=== PATIENT | female | born 1960 | race Caucasian/White ===

== ENCOUNTER 2016-08-25 09:57 | Day surgery (SDC) | payer MEDICARE, MEDICAID ==
[2016-08-25] VITALS (10 sets, daily range): BP systolic 112–179; BP diastolic 76–98; PULSE 57–70; RESP 14–18; O2SAT 85–98
[~2016-08-25] VITALS: Ht 167.6 cm; Wt 89.4 kg
[~2016-08-25 09:57] MED LIST: BACL20TA PO; BUPR1FIL3 SL; CYCL7.5T27 PO; CeFAZolin Inj 2 GM in IV Premix 1 EACH IV ONE; GABA-502 PO; HYG25 PO; IPRA4AER IH; LISI-567 PO; METF500T4 PO; OXYC1TAB24 PO
[2016-08-25] MEDS ORDERED: Lidocaine PF 1% 30 mL Inj ONE (09:58)
[2016-08-25] MEDS ORDERED: Succinylcholine Chloride 20 mg/mL 5 mL Inj ONE (09:58)
[2016-08-25] MEDS ORDERED: Ondansetron 2 mg/mL 2 mL Inj ONE (09:58)
[2016-08-25] MEDS ORDERED: fentaNYL-PF 50 mCg/mL 2 mL Inj ONE (09:58)
[2016-08-25] MEDS ORDERED: Rocuronium 10 mg/mL 5 mL Inj ONE (09:58)
[2016-08-25] MEDS ORDERED: Propofol 10,000 mCg/mL 20 mL Inj ONE (09:58)
[2016-08-25] MEDS ORDERED: Dexamethasone 4 mg/mL Inj ONE (09:58)
[2016-08-25] MEDS: Lactated Ringer's 1,000 ML IV SCH ×2 (10:07→12:04)
--- NOTE | 2016-08-25 11:44 | PCM.ORTHOP ---
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 Without the qualified health assistant being present, it would have extended the operative procedure and made the procedure technically more difficult to perform. INDICATIONS: The patient is Stephanie Acosta who is a 55-year-old female with right shoulder pain and dysfunction. The risks, benefits, and alternatives of surgery were discussed with the patient. The risks included but were not limited to infection, bleeding, damage to vessels and nerves, loss of motion, continued pain, complications due to anesthesia including myocardial infarction , stroke, , etc. The patient stated understanding of the nature of the surgical procedure and gave written and verbal consent to proceed. PROCEDURE: The patient was brought into the operating room and placed supine on the operating room table. A interscalene block was placed in the right shoulder for postoperative pain management, followed by the administration of general anesthesia. . The patient was then placed into the lateral decubitus position with the right side up. An axillary role was placed and the legs were padded as necessary to avoid pressure points. The patient was maintained in position with a beanbag evacuation device. A thorough examination of the right shoulder under anesthesia was performed. The patient had 160 degrees of forward elevation and 110 degrees of abduction. In 90 degrees of abduction there was 90 degrees of external rotation and 90 degrees of internal rotation. The shoulder was stable to load-shift testing. The right upper extremity was then prepped and draped in the usual fashion. The arm was suspended with a well-padded sleeve with eight/ten pounds of balanced suspension in the arthroscopic position. A standard posterior portal was made inferior and medial to the posterior corner of the acromion. The incision was made only through skin. The trocar was advanced through the soft tissue with a blunt-tipped obturator. This was inserted into the glenohumeral joint without difficulty. The 4 mm arthroscope was placed through the cannula and attached to the video monitor system. Inflow was achieved using the arthroscopic pump. The pressure was maintained at 35-40 mm of mercury throughout the entire procedure. Once the arthroscope confirmed visualization within the shoulder joint, it was advanced anteriorly into the rotator interval beneath the biceps tendon. A Wissinger soraya was then used to create the anterior portal from inside-out. A second anterior stab wound incision was made only through skin and an anterior cannula was placed. A routine arthroscopic survey was begun. The anterior labrum was debrided down to stable base. The biceps was tenotomized and RF wand was used to tighten the tissues. Survey: A2 B2 C2 full-thickness rotator cuff tear, partial biceps tendon tear, anterior labral degenerative tear The arm was then placed in the bursoscopy position. Moderate synovitis was noted and a partial synovectomy was performed with a RF wand and shaver. Complex surgical procedure: This was an extremely complex surgical procedure which took approximately 30-40 % longer to complete than a standard repair. Without the use of a qualified him assistant, this surgical procedure would have taken even considerably longer and been unable to be performed arthroscopically. Tyesha procedure: Within the subacromial space there was marked fraying on the undersurface of the coracoacromial ligament consistent with impingement. A decision was thus made to proceed with arthroscopic subacromial decompression. Using an RF wand and a motorized shaver the coracoacromial ligament was recessed from the anterior acromial edge. An orientation trough was made along the lateral margin of the acromion, from the anterior corner back to the posterior margin of the AC joint. A sequential subacromial smoothing was carried out, removing approximately [default value] mm of bone corresponding to the preoperative radiographs. Once completed, the AC joint capsule was opened. There was inferior spurring as well as synovitis and arthritic changes at the AC joint and a decision was made to proceed with distal clavicle excision. Using a motorized bur working initially from posteriorly and then anteriorly, the outer 10 mm of the distal clavicle were excised. The arthroscope was then positioned anteriorly within the AC resection site confirming an excellent level of resection. Single anchor repair Attention was then directed to the rotator cuff repair. Using the motorized shaver from both the anterolateral portal and the posterior portal, the free edge of rotator cuff was debrided. The anatomic neck of the tuberosity was then gently abraded, using the motorized shaver and exposing good bone for healing. Via an accessory anterolateral portal, a triple-loaded anchor was inserted, with excellent fixation purchase. The three stitches were then transported across the rotator cuff using a shuttling technique, spacing the sutures equidistantly. Once the sutures were all passed, they were sequentially tied, using SMC knots and alternating half-hitches, which gave excellent loop and knot security. This reduced the rotator cuff back to the anatomic neck. A microfracture was then performed laterally on the tuberosity creating a crimson duvet to aid in tendon healing. The biceps which was proceeded tenotomized intra-articularly was incorporated into the anterior limb of the rotator cuff repair. The biceps was tensioned prior to tenotomy with a needle and PDS suture intra-articularly and then tenodesed to the anchor. The arm was placed through range of motion and the rotator cuff and humeral head moved well as a unit. There was no further evidence for impingement. The subacromial space was irrigated with an additional 500 mL lactated Ringer solution. Excess fluid was drained. The arm was placed through a range of motion and the rotator cuff and humeral head moved well as a unit. There was no further evidence of impingement. The subacromial space was irrigated with an additional liter of lactated Ringers solution and excess fluid was drained. The arthroscopic portals were closed with #4-0 Nylon and Steri-Strips. A dry sterile dressing was applied, followed by a neutral rotation sling. The patient was awakened in the operating room and transported to the recovery room in satisfactory condition. The patient appeared to tolerate the procedure well. There were no complications noted. Grafts, Implants: Implants-See Implant Record Complications There were no periprocedural complications identified. Condition Stable Anesthetic Administered: GA Catheters: None Output, Estimated Blood Loss: 10 Blood Admin during surgery: No Surgical Cast or Splint: Shoulder Immobilizer Surgical Specimen Removed: No Specimen sent to Pathology: No copies to: Sky Sanders MD, Christopher L MD Aug 25, 2016 11:44
[2016-08-25] MEDS ORDERED: Ketorolac 15 mg/mL Inj IVPUSH ONE (11:45)
[2016-08-25] MEDS ORDERED: Lactated Ringer's 1,000 ML IV SCH (12:38)
[2016-08-25] MEDS ORDERED: Lactated Ringer's 500 ML IV PRN (12:38)
--- NOTE | 2016-08-25 12:38 | PCM.HPANE ---
Patient Data Surgeon Admitting Provider: Attending Provider:Sky Sanders MD Primary Care Physician:Sky Fabian DO Other Provider:Kaila Kapadia Anesthesia Reason for Visit Right Rotator Cuff Tear Ht/WT & BMI Height (Feet): 5 Height (Inches): 6 Weight (Kilograms): 89.4 Body Mass Index 31.00 Allergies Coded Allergies: codeine (Verified Allergy, Severe, RASH,ITCHING, 08/20/16) nitrofurantoin (Verified Allergy, Severe, HIVERS,SWELLING, 08/20/16) acetaminophen (Verified Adverse Reaction, Severe, LIVER TOXICITY,ITCHING, 08/20/16) metronidazole (Verified Adverse Reaction, Unknown, UNKNOWN, 08/20/16) Past Anesthesia History Anesthesia History: Denies:: Anesthesia Reactions, Malignant Hyperthermia Diabetes History Hx Diabetes?: Yes Type of Diabetes: Type II Glycemic Control: Oral Medication Current Bedside Blood Glucose: 151 MRSA MRSA: Yes (??RT HIP, RT WRIST) Medications Hypertension Medication: Yes (LISINOPRIL,CHLORTHALIDONE) Home Meds Incl Beta Carlito: No Reported Medications Metformin 500 Mg [id number] Mg PO BID Ref 0 MED HAS BEEN PRESCRIBED; PT HAS NOT STARTED TAKING YET 08/20/16 Lisinopril 20 Mg Irpsjv04 Mg PO DAILY 30 Days Ref 0 08/20/16 Gabapentin 300 Mg [id number] Mg PO TID Ref 0 08/20/16 Cyclobenzaprine 7.5 Mg Tablet7.5 Mg PO TID PRN Spasm Ref 0 08/20/16 Albuterol/Ipratropium (Combivent Respimat Inhal [place])120 Spr/4 Gm Inhaler1 Puff IH 6X/DAY #1 INH Ref 0 & PRN 08/20/16 Chlorthalidone 25 Mg Rxhosk05 Mg PO DAILY #30 TABLET 08/20/16 Discontinued Reported Medications Baclofen 20 Mg Hxpasr00 Mg PO BID Ref 0 08/20/16 Buprenorphine HCl/Naloxone HCl (Suboxone 8 mg-2 mg Sl Film)1 Each Film1 Each SL DAILY Ref 0 PT HAS HELD DRUG FOR 1 MONTH IN ANTICIPATION OF SURGERY 08/20/16 Discontinued Scripts oxyCODONE-Acetaminophen 5-325 mg 1 Each Tablet1-2 Tab PO Q4H PRN For Pain #15 TABLET Ref 0 Prov:Ko Beverly MD 04/10/16 History History of ENT Problems?: No Hx of Heart Problems?: Yes Cardiovascular History: Positive for:: Heart Murmur (REPORTED ECHO ([facility]) 10/2004, MPS 10/2005 REPORTED WNL) Hypertension (HYPERLIPIDEMIA) Valvular Heart Disease (NON-RHEUMATIC TR,MILD MR) Denies:: Congestive Heart Failure Irregular Heartbeat (HX PVC'S IN BIGEMENY) Hx of Respiratory Problem?: Yes Respiratory History: Positive for:: Asthma Denies:: Tuberculosis Use of C-PAP Machine (SNORES) Hx Neurologic Problems?: Yes Hx of GI Problems?: Yes Gastrointestinal History: Positive for:: Gall Bladder Disease (S/P JC) Gastroesphageal Reflux ("NUTCRACKER" ESOPHAGUS/SPASM) Hepatitis (CHRONIC HEP C) Other GI Pertinent History: S/P GASTRIC BYPASS, DX LAP X2,BOWEL RESECTION FOR SBO,HERNIA RPR Hx of Problems?: Yes Genitourinary History: Positive for:: Kidney Stones (HX OF MULT. STONES) Urinary Tract Infection (PYELONEPHRITIS) Female Hx: Denies:: Currently (HX HYSTERECTOMY) Skin History: Positive for:: History Skin Disorders? (HX RT HIP ABCESS REQ. I& D) Denies:: Pressure Ulcers Hx Musculoskeletal Problems?: Yes Musculoskeletal History: Positive for:: Musculoskeletal Trauma (S/P ORIF LT ANKLE W/ REVISION & HARDWARE REMOVAL,CTR) Osteoarthritis Denies:: Back Injury (C/OF CHRONIC NECK & BACK PAIN) Hx of Psycho/Social Problems?: Yes Psycho Social History: Positive for:: Anxiety Bipolar Disorder (BIPOLAR I) Hx Depression Suicide Attempt Other History/Comment hx Etoh abuse and polysubstance abuse Hx Surgeries?: Yes (RT WRIST SKIN GRAFT,CTR,BOWEL RESECTION,HERNIA RPR,ORIF LT ANKLE W/ REVISIO) Hx Any Other Health Problems?: Yes Other History: Positive for:: Hospitalization (NECOTIZING FACIITIS) Denies:: Cancer Endocrine Disease Thyroid Disease Hx Diabetes: YesBedside Blood Glucose: 151 Hx Alcohol Use: Yes (PT SAYS CURRENTLY IN REMIOSSION)Hx Substance Use: Yes ( HX ABUSE (HEROIN,METH,COCAINE) CURRENTLY IN REMISSION) Smoking Status: Current Every Day Smoker Have You Smoked inLast 12 mo: YesApprox How Many Cigarettes/day: 1/2 PPD X 20YRS Stop/Bang S-Snoring: Do You Snore Loudly: Yes T-Tired: feel tired, fatigued: Yes O-Obsered: Observed not breath: Yes P-Blood Pressure: treated: Yes B- Body Mass Index > 35 kg/m2: No A- Age over 50: Yes N- Neck Large Circumference: No G- Gender Male: No CADEN Total Score: 5 Risk Assessment Category Category 1A: Patient has history of documented sleep apnea, and HAS NOT received any narcotic, sedative or anesthesia administration during this stay. Category 1B: Patient has history of documented sleep apnea, and HAS received any narcotic , sedative or anesthesia administration during this stay Category 2: Patient has SUSPECTED Obstructive Sleep Apnea, and HAS received any narcotic , sedative or anesthesia administration during this stay. Category 3: Patient has SUSPECTED Obstructive Sleep Apnea and HAS NOT received narcotic, sedative or anesthesia administration during this stay. Category 4: Outpatient in Procedural Areas with known sleep apnea or who screen positive for High Risk via the STOP/BANG questionnaire. Exam Exam Vital Signs Vital Signs Date Time Temp Pulse Resp B/P Pulse Ox O2 Delivery O2 Flow Rate FiO2 08/25/16 10:39 35.9 58 16 160/89 98 Room Air General Appearance: Alert, Oriented X3 HEENT/AIRWAY: Neck Movement (FROM) Lungs: Clear to Auscultation, Clear to Percussion Heart: Exam Unremarkable, Regular Rate/Rhythm Meds/Labs/Diagnostics Admission Meds Current Medications Lactated Ringer's (Lr) 1,000 ml @ 120 mls/hr Q8H20M IV Last administered on t 10:07; Start 08/25/16 at 05:00; Stop 08/25/16 at 13:19 Bedside Blood Glucose: 151 Plan Impression Patient chart reviewed, patient interviewed and anesthestic plan with risks, benefits, and alternatives discussed, and informed consent obtained. NPO Status: 08/24/16 ASA Physical Status: ASA3 Severe Disease (etoh abuse/polysubstance abuse) Anesthetic Plan: GA, Regional Block (Interscalene block for post-op pain control per surgeon request after hearing r/b/a) Bene/Risks/Altern/Consents: Yes HP Complete Prior to Induction: Yes Joshua Briceno MD Aug 25, 2016 11:46
[2016-08-25] MEDS ORDERED: Phenylephrine 10,000 mCg/mL Inj IVPUSH PRN (12:40)
[2016-08-25] MEDS ORDERED: Labetalol 5 mg/mL 4 mL Inj IV PRN (12:40)
[2016-08-25] MEDS ORDERED: EPHEDrine Sulfate 50 mg/mL Inj IVPUSH PRN (12:40)
[2016-08-25] MEDS ORDERED: Atropine 0.4 mg/mL Inj IVPUSH PRN (12:40)
[2016-08-25] MEDS ORDERED: HYDROmorphone 1 mg/mL Inj IVPUSH PRN (12:40)
[2016-08-25] MEDS ORDERED: MetoCLOpramide 5 mg/mL 2 mL Inj IVPUSH PRN (12:40)
[2016-08-25] MEDS ORDERED: Ondansetron 2 mg/mL 2 mL Inj IVPUSH PRN (12:40)
[2016-08-25] MEDS ORDERED: fentaNYL-PF 50 mCg/mL 2 mL Inj IVPUSH PRN (12:40)
[2016-08-25] MEDS ORDERED: Ropivacaine-PF 0.5% 30 mL Inj INJ ONE (12:49)
--- NOTE | 2016-08-25 15:09 | PCM.ANEP1 ---
Post Anesthesia Phase 1 PACU Phase 1 Assessment Date of Service: Aug 25, 2016 Vital Signs Vital Signs Date Time Temp Pulse Resp B/P Pulse Ox O2 Delivery O2 Flow Rate FiO2 08/25/16 14:49 68 16 178/84 95 Nasal Cannula 2 08/25/16 14:43 57 14 163/96 94 Nasal Cannula 2 08/25/16 14:36 65 18 156/88 98 Nasal Cannula 4 08/25/16 14:30 69 16 179/88 97 Nasal Cannula 4 08/25/16 14:20 57 15 148/76 95 Nasal Cannula 4 08/25/16 14:15 61 16 169/77 93 Nasal Cannula 4 08/25/16 14:10 36.6 59 17 155/81 85 Room Air 08/25/16 10:39 35.9 58 16 160/89 98 Room Air Anesthetic Administered: GA Level of Alertness: Awake, talking FRANCO's with Equal Strength: No (Block) Nausea or Vomiting: No Oxygen Delivery: Simple Mask Lungs: Clear to Auscultation, Clear to Percussion Joshua Briceno MD Aug 25, 2016 15:09
--- NOTE | 2016-08-25 15:09 | PCM.ANEP2 ---
Post Anesthesia Evaluation ASA/CMS Post Anesthesia VS in Patient's Normal Range?: Yes Resp Stable; Airway Patent?: Yes CV Function & Hydration Stable: Yes Mental Status Recovered?: Yes Pain control Satisfactory?: Yes N/V Control Satisfactory?: Yes Joshua Briceno MD Aug 25, 2016 15:09
== END 2016-08-25 23:59 | disposition home or self-care (01) ==
LOC: SAS 09:57
PROVIDERS: ATTEND Orthopaedic Surgery
DX: M75.121 Complete rotator cuff tear or rupture of right shoulder, not specified as traumatic (principal); M75.41 Impingement syndrome of right shoulder; M75.21 Bicipital tendinitis, right shoulder; I10 Essential (primary) hypertension; E78.5 Hyperlipidemia, unspecified; K21.9 Gastro-esophageal reflux disease without esophagitis; F31.9 Bipolar disorder, unspecified; F41.9 Anxiety disorder, unspecified; B18.2 Chronic viral hepatitis C; E11.9 Type 2 diabetes mellitus without complications; J45.909 Unspecified asthma, uncomplicated; F10.21 Alcohol dependence, in remission; F19.90 Other psychoactive substance use, unspecified, uncomplicated; Z79.84 Long term (current) use of oral hypoglycemic drugs; F17.210 Nicotine dependence, cigarettes, uncomplicated; Z79.891 Long term (current) use of opiate analgesic
CPT/HCPCS: 29824; 29826; 29827; 29828; 76942; C1713; J0330; J0690; J1100; J1885; J2250; J2405; J2795; J3010; J7120

== ENCOUNTER 2016-12-16 15:46 | Inpatient (IN) | payer MEDICARE, MEDICAID ==
[~2016-12-16] VITALS: Ht 167.6 cm; Wt 86.3 kg
[2016-12-16] VITALS (9 sets, daily range): BP systolic 141–167; BP diastolic 69–98; PULSE 71–82; RESP 14–18; O2SAT 95–100
[~2016-12-16 15:46] MED LIST changes: -BACL20TA PO; -BUPR1FIL3 SL; -CeFAZolin Inj 2 GM in IV Premix 1 EACH IV ONE; -OXYC1TAB24 PO
[2016-12-16] MEDS ORDERED: ALBU8.5H2 INHALATION (16:36)
--- NOTE | 2016-12-16 16:40 | ED.REPORT ---
HPI-General Illness Date of Service Dec 16, 2016 ED Provider: Aniceto Muñoz MD Nursing Notes Stated Complaint: CELLULITIS OF LEFT HIP Chief Complaint: General Complaint Allergies: Coded Allergies: codeine (Verified Allergy, Severe, RASH,ITCHING, 08/20/16) nitrofurantoin (Verified Allergy, Severe, HIVERS,SWELLING, 08/20/16) acetaminophen (Verified Adverse Reaction, Severe, LIVER TOXICITY,ITCHING, 08/20/16) metronidazole (Verified Adverse Reaction, Unknown, "affects my nervous system", 12/16/16) Scheduled Metformin (Metformin) 500 Mg Tablet 500 MG PO BID Scheduled PRN Albuterol HFA (Proair HFA) 8.5 Gm Hfa.aer.ad 2 PUFFS INHALATION Q4H PRN PRN For Wheezing Albuterol/Ipratropium (Combivent Respimat Inhal [place]) 120 Spr/4 Gm Inhaler 1 PUFF IH 6X/DAY PRN PRN For Shortness of Breath & PRN General Time Seen by MD: 16:40 Past Medical History Past Medical History Multiple episodes of kidney stones and urine tract infections. Chronic neck pain, back pain. Bipolar- takes meds as Rx EtOH abuse Reports: Asthma, Diabetes mellitus, Hyperlipidemia, Hypertension Past Surgical History Skin graft for necrotizing fasciitis on right wrist. Avasular necrosis Carpal tunnel Surgery for SBO Hernia repair Plate placement in left ankle Reports: Hysterectomy Reports: Carpal tunnel Family History Pancreatitis - reported by patient Smoking History Current Every Day Smoker Social History Lives in a ch[facility] Alcohol Use: >5 per day Drug Use: IV drugs, Meth Occupation living with son and daughter, no work or school Ambulatory Status Independent Physical Exam Vital Signs Vital Signs Date Time Temp Pulse Resp B/P Pulse Ox O2 Delivery O2 Flow Rate FiO2 12/16/16 16:04 36.8 81 16 167/98 97 Room Air 12/16/16 15:53 36.8 81 16 167/98 97 Room Air Interpretation & Diagnostics Lab Results Interpretation Result Diagram: 12/16/16 1620 12/16/16 1620 Test 12/16/16 16:20 12/16/16 16:58 White Blood Count 10.8th/mm3 (3.8-10.1) Red Blood Count 4.79mil/mm3 (3.90-5.20) Hemoglobin 14.0g/dL (12.0-15.6) Hematocrit 41.0% (35.0-46.0) Mean Corpuscular Volume 85.6fL (81-100) Mean Corpuscular Hemoglobin 29.2pg (27.0-35.0) Mean Corpuscular Hemoglobin Concent 34.1% (32.0-37.0) Red Cell Distribution Width 11.6% (12.3-15.4) Platelet Count 248bil/L (150-400) Neutrophils (%) (Auto) 63.4% (40-74) Lymphocytes (%) (Auto) 27.3% (14-46) Monocytes (%) (Auto) 7.6% (4-12) Eosinophils (%) (Auto) 1.1% (0-5) Basophils (%) (Auto) 0.2% (0-3) Hold Purple Top Tube Received (Received) Hold Blue Top Tube Received (Received) Sodium Level 132mEq/L (134-144) Potassium Level 4.5mEq/L (3.5-5.2) Chloride Level 97mEq/L (97-108) Carbon Dioxide Level 23mmol/L (18-29) Blood Urea Nitrogen 13mg/dL (6-24) Creatinine 0.62mg/dL (0.57-1.00) Estimat Glomerular Filtration Rate 142mL/min (>59) Glucose Level 400mg/dL (60-99) Calcium Level 10.0mg/dL (8.5-10.1) Magnesium Level 1.8mg/dL (1.6-2.6) Total Bilirubin 0.5mg/dL (0.0-1.2) Aspartate Amino Transf (AST/SGOT) 12U/L (0-50) Alanine Aminotransferase (ALT/SGPT) 15U/L (0-32) Alkaline Phosphatase 142U/L (25-150) Total Protein 7.6g/dL (6.4-8.4) Albumin 3.6g/dL (3.4-5.0) Lipase 14U/L (13-60) Hold [place] Top Tube Received (Received) Lactic Acid Level 1.1mmol/L (0.4-2.0) Discharge & Departure Referrals: Sky Fabian DO (PCP) Aniceto Muñoz MD Dec 16, 2016 16:40 Teresa Balbuena Dec 16, 2016 18:09
[2016-12-16 16:58] LABS: BASOPHILS % (AUTO) 0.2 % (0-3); EOSINOPHILS % (AUTO) 1.1 % (0-5); MONOCYTES % (AUTO) 7.6 % (4-12); Mean Corpuscular Hemoglobin 29.2 pg (27.0-35.0); Mean Corpuscular Volume 85.6 fL (81-100); NEUTROPHILS % (AUTO) 63.4 % (40-74); Platelet Count 248 bil/L (150-400)
[2016-12-16 17:07] LABS: Magnesium 1.8 mg/dL (1.6-2.6)
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
[2016-12-16] MEDS ORDERED: HYDROmorphone Inj 2 MG in 0.9% Sodium Chloride 100 ML IV ONE (18:30)
[2016-12-16] MEDS ORDERED: 0.9% Sodium Chloride 1,000 ML IV ONE ×2 (18:30→19:55)
[2016-12-16] MEDS ORDERED: HYDROmorphone 1 mg/mL Inj IVPUSH ONE (18:40)
[2016-12-16 19:01] LABS: APPEARANCE,URINE CLEAR (CLEAR,HAZY); COLOR,URINE YELLOW (YELLOW); OCCULT BLOOD,URINE NEGATIVE (NEGATIVE); UROBILINOGEN,URINE NORMAL (NORMAL)
[2016-12-16] MEDS ORDERED: Vancomycin Inj 1,000 MG in IV Premix 1 EACH IV ONE (19:55)
[2016-12-16] MEDS ORDERED: CeFAZolin 2 Gm/50 mL D5W Duplex Bag IV ONE (19:55)
[2016-12-16] MEDS: HYDROmorphone 1 mg/mL Inj IVPUSH PRN ×2 (20:22→21:06)
--- NOTE | 2016-12-16 20:48 | DRSVH ---
PROCEDURE: CT HIP LEFT WITH CONTRAST ([id number]) INDICATIONS: large abscess L hip TECHNIQUE: After the administration of intravenous contrast, 3 mm axial sections acquired of the hip, with coron al and sagittal reformats. For radiation dose reduction, the following was used: automated exposure control, adjustment of mA and/or kV according to patient size. COMPARISON: None. FINDINGS: Image quality: Excellent. Bones: Osseous structures are intact. There is no fractures identified. Soft tissues: There is a 75 mm AP by 38 mm transverse focus of heterogeneous enhancement with areas o f low-attenuation present and fluid within the subcutaneous fat at the level of the iliac crest. Ther e is overlying skin thickening. It is immediately below the skin surface. In addition, there is a foc us of low attenuation within the right iliopsoas musculature measuring 19 mm. IMPRESSION: 1. Heterogeneous focus of enhancement with low attenuation presumably fluid within the subcutaneous f at at the level of the iliac crest with skin thickening. Appearance is most suggestive of cellulitis with underlying abscess/phlegmon. 2. 19 mm low attenuation focus within the left iliopsoas musculature. Appearance is suspicious for a second focus of infection/inflammation. Dictated by: Adelia Harris M.D. on 12/16/2016 at 20:39 Approved by: Adelia Harris M.D. on 12/16/2016 at 20:47
[2016-12-16] MEDS ORDERED: Ondansetron 2 mg/mL 2 mL Inj ONE (22:00)
[2016-12-16] MEDS ORDERED: fentaNYL-PF 50 mCg/mL 2 mL Inj ONE (22:00)
[2016-12-16] MEDS ORDERED: HYDROmorphone 1 mg/mL Inj ONE (22:00)
[2016-12-16] MEDS ORDERED: Propofol 10,000 mCg/mL 20 mL Inj ONE (22:00)
[2016-12-16] MEDS ORDERED: Lactated Ringer's 1,000 ML IV ONE (22:28)
[2016-12-16] MEDS ORDERED: Ondansetron 2 mg/mL 2 mL Inj IVPUSH PRN ×2 (22:40→22:55)
[2016-12-16] MEDS ORDERED: Glucose 40% Oral Gel 15 Gm Tube PO PRN (22:40)
[2016-12-16] MEDS ORDERED: Alum-Mag Hydrox-Simeth 30 mL Suspension PO PRN (22:40)
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
[2016-12-16] MEDS ORDERED: Lactated Ringer's 500 ML IV PRN (22:53)
[2016-12-16] MEDS ORDERED: Lactated Ringer's 1,000 ML IV SCH (22:53)
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
[2016-12-16] MEDS ORDERED: Bupivacaine-MPF 0.5% W/EPI 30 mL Inj INFILTRATE ONE (22:55)
[2016-12-16] MEDS ORDERED: Labetalol 5 mg/mL 4 mL Inj IV PRN (22:55)
[2016-12-16] MEDS ORDERED: Phenylephrine 10,000 mCg/mL Inj IVPUSH PRN (22:55)
[2016-12-16] MEDS ORDERED: hydrALAZINE 20 mg/mL Inj IVPUSH PRN (22:55)
[2016-12-16] MEDS ORDERED: fentaNYL-PF 50 mCg/mL 2 mL Inj IVPUSH PRN (22:55)
[2016-12-16] MEDS ORDERED: MetoCLOpramide 5 mg/mL 2 mL Inj IVPUSH PRN (22:55)
[2016-12-16] MEDS ORDERED: EPHEDrine Sulfate 50 mg/mL Inj IVPUSH PRN (22:55)
[2016-12-16] MEDS ORDERED: Atropine 0.4 mg/mL Inj IVPUSH PRN (22:55)
[2016-12-16] MEDS ORDERED: HYDROmorphone 1 mg/mL Inj IVPUSH PRN (22:55)
[2016-12-16] MEDS ORDERED: Piper-Tazo 3.375 Gm/50 mL D5W Minibag Plus - Q8H over 4 hrs IV ONE ×2 (22:55)
--- NOTE | 2016-12-16 23:07 | PCM.ANEP1 ---
Post Anesthesia PACU Phase 1 Assessment Date of Service: Dec 16, 2016 Vital Signs Vital Signs Date Time Temp Pulse Resp B/P Pulse Ox O2 Delivery O2 Flow Rate FiO2 12/16/16 21:05 76 16 150/87 100 Room Air 12/16/16 18:49 37.5 74 14 147/90 97 Room Air 12/16/16 16:04 36.8 81 16 167/98 97 Room Air 12/16/16 15:53 36.8 81 16 167/98 97 Room Air Anesthetic Administered: GA Level of Alertness: Sleepy, easy to arouse FRANCO's with Equal Strength: Yes Pain: Yes Pain Scale Score: 6 Nausea or Vomiting: No CV Function & Hydration Stable: Yes Airway Device: Oxygen Delivery: Room Air Lungs: Clear to Auscultation, Normal Air Movement PACU Phase 2 Assessment Complications: No Follow up Care: No Patient Instructions Provided: Yes Federico Oakes MD Dec 16, 2016 23:07
--- NOTE | 2016-12-16 23:09 | PCM.SURGOP ---
Surgical Operative Report Date of Service: Dec 16, 2016 Pre Operative Diagnosis Left hip abscess Post Operative Diagnosis Same Procedure: Incision and drainage of complex left hip abscess Surgeon and Compensation Advisor: Surgeon: Erich Koehler MD Assistants: None Indication for Procedure 56-year-old diabetic woman with a long-standing history of IV heroin abuse, who presented to the emergency department today with 3 weeks of increasing pain and redness on her left hip. On exam, she had a subcutaneous abscess, large enough to warrant drainage in the operating room. After discussion of risks and benefits, she agreed to proceed. Findings: There was approximately 30 mL of tql-zjnd-spvadgyi pus. The abscess cavity was packed with Kerlix. Procedure Details After smooth induction of general anesthesia with an LMA, she was placed in the supine position with a bump under the left hip, and was prepped and draped in wide sterile fashion. A procedural pause was performed according to the SCOAP checklist, and all were found to be in agreement. A 3 cm transverse incision was made, and carried through the subcutaneous tissue with electrocautery until the abscess cavity was encountered. A culture was obtained. Approximately 30 mL of scx-krdq-evcxaanl pus was evacuated from the cavity. Loculations were broken up bluntly. There was only a minimal amount of undermining circumferentially. No other undrained pockets could be appreciated. The cavity was irrigated. The cavity was packed with Kerlix gauze , and dressed with ABD pads and tape. At the end of the case all needle and sponge counts were correct 2. The patient was awakened from anesthesia without difficulty, and taken to the recovery room in satisfactory condition, having tolerated the procedure well. Complications There were no periprocedural complications identified. Surgical Specimen Removed: No Specimen sent to Pathology: Not applicable Anesthetic Plan: GA Grafts, Implants: None Output, Estimated Blood Loss: 10 Blood Administration during esquivel: No Drains: None Catheters: None copies to: Sky Fabian Joshua D MD Dec 16, 2016 23:09
--- NOTE | 2016-12-16 23:30 | NUR ---
Admit Pt arrived on unit via stretcher. Pt able to scoot over from stretcher to bed. Pt had elevated BP. Upon reassessment BP normal. Pt pain 12/27. Sharps taken out of room and Security called lock up patient possessions. Dressings clean/dry/intact. Good pedal pulses. Pt on contact isolation due to history of MRSA.
--- NOTE | 2016-12-17 00:10 | CONS ---
[address] [address] CONSULTATION REPORT PATIENT: LEEANNE LOPES : 1960 MR#: [id number] ADMIT: 12/16/2016 JOB ID: [id number] DATE OF SERVICE: 12/16/2016 CHIEF COMPLAINT: Left hip pain. HISTORY OF PRESENT ILLNESS: The patient is a 56-year-old type 2 diabetic who has a longstanding history of heroin abuse and multiple abscesses, who presented to the emergency department with 2-3 weeks of increasing left hip pain and erythema. She states that she last injected heroin into that area approximately three weeks ago. She states that she uses approximately 10-20 dollars worth of heroin daily. She was hyperglycemic at home with a blood glucose running over 600. PAST MEDICAL HISTORY: Asthma, type 2 diabetes, hypertension, hyperlipidemia, kidney stones, urinary tract infections, chronic back pain, bipolar, alcohol abuse, heroin abuse. PAST SURGICAL HISTORY: Debridement of right arm necrotizing soft tissue infection with skin graft, avascular necrosis, carpal tunnel syndrome, small bowel obstruction, hernia repair, left ankle ORIF, hysterectomy, carpal tunnel surgery. SOCIAL HISTORY: Quit using alcohol in 2016. She uses heroin regularly and admits to past cocaine use. She smokes cigarettes everyday. FAMILY HISTORY: Noncontributory. REVIEW OF SYSTEMS: A 10-point review of systems is negative except as described in history of present illness, specifically denies other subcutaneous abscess sites. PHYSICAL EXAMINATION: Body mass index 30.7, temperature 37.5, pulse 74, blood pressure 147/90, saturation 97% on room air. General: She is resting in bed in no acute distress. HEENT: Sclerae are anicteric. Mucous membranes moist. Neck: No lymphadenopathy. Chest is clear. Heart: Regular rate and rhythm. No murmurs. Extremities: On the left lateral hip, there is a 4-5 cm area of fluctuance with 10 cm of surrounding erythema. There is no crepitus. There is no active drainage. Neuro: No deficits. Psychiatric: Affect is appropriate. LABORATORIES: White count is 10.8, hematocrit 41.0, platelets 248, creatinine 0.62, glucose 400, lactate 1.1, albumin 3.6. ASSESSMENT AND PLAN: A 56-year-old diabetic woman with history of heroin abuse with a left hip abscess. I have recommended she go to the operating room for incision and drainage of left hip abscess. She will require wound care after drainage and she knows it will take several months for her wound to heal completely. Technical aspects of surgery were discussed. Risks were discussed, and informed consent was obtained. We will proceed with surgery this evening. Following surgery, she will need wound care consultation. She will likely need to follow up [facility].
--- NOTE | 2016-12-17 00:17 | PCM.PHAPRO ---
Progress Date of Service: Dec 17, 2016 - elevated blood glucose - left hip pain Vancomycin Management Per Pharmacy: Indication: Left Hip Abscess Goal Trough: 10-15 mg/dL Age: 56 yo F Labs: WBC: 10.8 SrCr: 0.62 mg/dL Est CrCl: ~ 110 mL/min Vitals: Stable Nephrotoxic Risk Factors: Uncontrolled diabetes, Zosyn Additional Abx: Zosyn IV Micro: Pending Recommendation: Initial Load: Vancomycin 1000 mg IV x 1 (given in ED), Give additional 1000 mg 4 hrs later as initial dose too low Maintenance: Vancomycin 750 mg IV Q8h Trough: Draw on 12/18/16 @ 0730 prior to 4th maintenance dose Pharmacy to continue to monitor and adjust dose as needed. Thank You, Kary Nichols, Pharm D. Kary Nichols Dec 17, 2016 00:17
[2016-12-17] MEDS: Insulin LISPRO 300 Unit/3 mL Inj SUBQ SCH ×5 (00:21→22:42)
[2016-12-17] MEDS: Heparin 5,000 Unit/mL Inj SUBQ SCH ×3 (00:23→15:57)
[2016-12-17] MEDS ORDERED: Vancomycin 1 Gm/200 mL NS Premix IV ONE (00:30)
[2016-12-17] MEDS ORDERED: Vancomycin 1 Gm/200 mL NS Premix IV SCH (00:30)
[2016-12-17 01:11] VITALS: BP 129/74; PULSE 62; RESP 18; O2SAT 96
[2016-12-17] MEDS: Piperacillin-Tazo 3.375 Gm Inj 3.375 GM in Dextrose 5% Minibag Plus 50 ML IV SCH ×3 (05:09→20:25)
[2016-12-17 05:24] VITALS: BP 128/80; PULSE 71; RESP 18; O2SAT 96
[2016-12-17 06:34] LABS: BASOPHILS % (AUTO) 0.1 % (0-3); EOSINOPHILS % (AUTO) 1.2 % (0-5); MONOCYTES % (AUTO) 10.3 % (4-12); Mean Corpuscular Hemoglobin 29.3 pg (27.0-35.0); Mean Corpuscular Volume 85.8 fL (81-100); NEUTROPHILS % (AUTO) 60.5 % (40-74); Platelet Count 192 bil/L (150-400)
[2016-12-17] MEDS ORDERED: Albuterol 2.5 mg/3 mL Inhalation Solution NEB PRN (07:00)
--- NOTE | 2016-12-17 08:08 | PROG NOTE ---
[address] [address] PROGRESS NOTE PATIENT: LEEANNE LOPES : 1960 MR#: [id number] ADMIT: 12/16/2016 JOB ID: [id number] DATE: 12/17/2016 SUBJECTIVE: The patient is seen in followup. She complains of quite a bit of pain on her left hip site but does feel slightly better than before surgery. OBJECTIVE: Temperature 37.0, pulse 71, blood pressure 128/80, saturation 96% on room air. In general, she is resting in bed in no acute distress. Chest is clear. Heart: Regular rate and rhythm. No murmurs. Extremities: The left hip site was examined but the packing was not removed yet. There is persistent erythema and induration of the surrounding skin, but no progression of erythema. No crepitance. LABORATORIES: White count is 9.9, hematocrit 39.3, creatinine 0.52, glucose 234. ASSESSMENT AND PLAN: A 56-year-old diabetic woman status post incision and drainage of complex left hip abscess. Gram stain and culture from the abscess is pending. Recommend continuing broad-spectrum antibiotics. Wound therapy has been consulted, and I recommend replacing her packing later today which will require premedication with IV narcotics for sure.
[2016-12-17] MEDS ORDERED: Vancomycin Dose per Pharmacist XX SCH (08:30)
[2016-12-17] MEDS: Pantoprazole 20 mg ER24 Tablet PO SCH (08:36)
[2016-12-17] MEDS: Vancomycin Inj 750 MG in 0.9% Sodium Chloride 250 ML IV SCH ×2 (08:37→15:55)
[2016-12-17] MEDS: 0.9% Sodium Chloride 1,000 ML IV SCH ×2 (10:35→20:25)
--- NOTE | 2016-12-17 13:40 | NUR ---
Wound Note 56 yo female admitted to [facility] with left hip abscess that was surgical drained by Dr Koehler 12/16. Patient reports long history of abscesses, apparently is an iv drug user. Packing was removed from left hip wound site, incision is 4 cms long in transverse direction and a depth of 3 cms, drainage is moderate and serous in nature. The wound is clean and without tunneling. Erythema surrounds the wound 6 cms circumferentially. Wound was copiously irrigated at bedside with saline then repacked with 1" packing strip covered with abd pad and taped in place, recommend this be changed by nursing on a daily basis during hospital stay. Patient has taken care of these types of wounds in the past instructed in wound hygiene once discharged.
--- NOTE | 2016-12-17 15:36 | NUR ---
Social Work: Initial Assessment D: EMR reviewed. Pt is a 56 y/o female admitted for left hip abscess, cellulitis per H&P. Pt's insurance is Medicare and [facility] Supplemental. Pt's PCP is Sky Fabian DO. SW met with pt at bedside to conduct initial assessment. Pt was alert and oriented x3. SW explained role and wrote phone number on white board. Pt gave verbal consent to contact SO, Sharad Hayden ([phone]) for discharge planning. Pt decline DPOA/advanced directive ppw/information at this time. Pt does not have LTC insurance or VA benefits. Pt has no hx at a SNF. Pt has hx with HH agency in [place] (pt can't recall name of agency or HH services provided). Pt does not own or use any DME. Pt is independent with all ADLs. Pt does not drive - requested bus pass for transfer home at time of discharge. Pt stated she does not have wallet/method of payment for bus home. SW will provide bus pass as pt states she has no other options for transportation at this time. Pt is independent at baseline. Pt has hx of IVDU and ID is following for potential IVABX at discharge. SW will follow pt for potential ABX needs and discuss potential need for CDP with MD. SW will continue to follow and work with medical team to determine needs at discharge and discharge plan. A: Pt who is independent at baseline P: Pt has hx of IVDU and ID is following for potential IVABX at discharge. SW will follow pt for potential ABX needs and discuss potential need for CDP with MD. SW will continue to follow and work with medical team to determine needs at discharge and discharge plan. RASHEED Davis Addendum: 12/17/16 at 1547 by AMERICO ALFRED Amended: Links added.
[2016-12-17 17:17] VITALS: BP 134/75; PULSE 70; RESP 20; O2SAT 98
--- NOTE | 2016-12-17 17:19 | NUR ---
Pain Pt c/o on 03/29 pain at start of shift, receiving 10mg PO Roxycodone ~q4h; sleeping between doses. Was medicated with PO regimen prior to dressing change with WC. C/o intense, increased pains with change and post. Aware of when next dose available, was not asking for additional pain medication but instead asking for things to distract her with. Dose given with next available dose. Care continues. Addendum: 12/17/16 at 1724 by CRISSY RAMOS RN No acute issues this shift.
[2016-12-17 19:59] VITALS: BP 169/98; PULSE 71; RESP 20; O2SAT 100
--- NOTE | 2016-12-17 20:42 | CONS ---
[address] [address] CONSULTATION REPORT PATIENT: LEEANNE LOPES : 1960 MR#: [id number] ADMIT: 12/16/2016 JOB ID: [id number] DATE OF SERVICE: 12/17/2016 INFECTIOUS DISEASE CONSULTATION: I thank Dr. Olmstead for this timely consult. REASON FOR CONSULTATION: Left hip abscess in an intramuscular narcotic user. HISTORY OF PRESENT ILLNESS: The patient is a rather unfortunate 56-year-old woman with multiple medical problems, including many complications of injection drug use. These problems include innumerable soft tissue infections, as well as endocarditis and necrotizing fasciitis of the right arm. In addition to that she is a diabetic and has avascular necrosis of both ankles by her report, as well as bipolar disorder and a history of alcohol abuse in the past. In any event, the patient came to the ED yesterday December 16 with hyperglycemia. She stated her blood sugars have been stubbornly in the 600s at home so she was sent to the ED to evaluate her for DKA. She also complained about that time of having pain in the left hip which had gone on for a couple weeks and was getting steadily worse. She said she injects drugs into her hip and this has often been the mechanism by which she has gotten other soft tissue infections. She had little in the way of fever, however, mainly just left hip pain and diabetes out of control. She said she had no significant fevers, chills, or sweats, and no pulmonary or GI symptoms. No symptoms. The patient was admitted to this facility and underwent washout yesterday, which was the day of admission, by Dr. Koehler. He made an incision and took out 30 mL of pus which did not have any bad odor. The patient has been broadly covered with antibiotics and is currently receiving antibiotics including vancomycin and Zosyn. This is being administered through a peripheral IV in the patient's left hand as she has basically no veins. ID consultation is requested regarding antibiotic management. The patient tells me that aside from severe pain around the site of the incision, and terrible pain when they change the dressing, she is starting to feel a bit better today. She has no fever or chills and is feeling perhaps overall a bit better except for the terrible pain at the site of the I and D. PAST MEDICAL HISTORY: 1. Asthma. 2. Cigarette smoking. 3. Diabetes mellitus. 4. Hyperlipidemia. 5. Hyperlipidemia. 6. Hypertension. 7. Nephrolithiasis. 8. Multiple UTIs. 9. Chronic back pain. 10. Chronic ankle pain secondary to bilateral avascular necrosis of the ankles. 11. History of alcoholism. 12. Long history of IV and more recently IM opiate use. 13. Multiple soft tissue infections including abscesses and necrotizing fasciitis of the right wrist. 14. History of endocarditis. 15. Hernia repair. SOCIAL HISTORY: The patient was a former heavy alcohol user. She quit several years ago and now drinks rarely. She is an IM heroin injector and has also used cocaine in the past. She does that on a frequent basis and is a heavy cigarette smoker. FAMILY HISTORY: Negative for tuberculosis in first- or second-degree relatives. REVIEW OF SYSTEMS: The patient has no significant headache. She denies visual complaints, sore throat, or trouble swallowing. She states that she has no significant cough or shortness of breath, though occasionally has wheezing. No nausea, vomiting, or diarrhea. She has no dysuria. She denies significant pain in the extremities, though she notes she has chronic pain in both ankles, but it is not worse than usual. She has severe pain in her left hip where she just had an I and D. The remainder of the review of systems is basically negative. PHYSICAL EXAMINATION: Reveals a somewhat distraught woman appearing about her stated age of 56. She has been afebrile during her short stay in the hospital here; temp now 36.8, pulse 70, respiratory rate 20, blood pressure 134/75. She is saturating well on room air. Examination of the head reveals no notable abnormalities. Her mental status is clear. Eyes are notable for conjunctival hyperemia, which I think may be due to crying, though she was not crying when I saw her. Oral cavity benign. No thrush, hairy leukoplakia, or pharyngitis. Neck supple. Lungs relatively clear. Cardiac tones regular rate and rhythm, with no significant murmur. Abdomen obese, soft, and nontender. No Peralta catheter. No suprapubic fullness. She has no significant synovitis noted and she has no skin rash or peripheral edema. She is neurologically intact. She has a dressing present over her left upper lateral buttock wound which was the site of her I and D yesterday. There is some mild erythema around the dressing and the patient basically refuses to allow any more exam as it is too painful. LABORATORIES: Include white count 9900, normal diff. Creatinine 0.52. LFTs are normal. Albumin 3.0. Urinalysis without white cells. Cultures from the surgery are pending, but the Gram stain shows GPCs with polys. Blood cultures done yesterday are negative. IMAGING: Includes the CT of the buttock area and hip which showed an abscess in the subcutaneous fat at the level of the iliac crest. Also noted was possible low-attenuation focus in the left iliopsoas muscle. IMPRESSION: This is an IM heroin user with history of recurrent soft tissue infections as well as necrotizing fasciitis of the right arm and endocarditis. She now presents with a pretty classic abscess involving the subcutaneous area around the left hip. There may also be a deeper collection in the iliopsoas. I agree with the current antibiotics but it would be very difficult to keep fusing frequent doses of Zosyn through the tiny peripheral IV she has, so will look to change that tomorrow as we get back more definitive culture results. RECOMMENDATIONS: 1. No central line or PICC is needed here. We will switch to longer acting antibiotics tomorrow as we get back the cultures. 2. The patient tells me she is hepatitis C positive, so I do not think there is any reason to repeat that. She was in a study and was treated and failed treatment with old fashioned therapy and needs to be treated with more modern treatment at some point. 3. We will do an HIV. 4. We will check a CRP. 5. The patient says she gets an inordinate number of soft tissue abscesses and as she recovers from this it may be reasonable to check a quantitative immunoglobulin level and I will plan to do that perhaps as an outpatient down the road. Thank you for asking me to see this patient. Tomorrow we will rearrange her antibiotics into a more simple regimen and probably just give her one single drug in one single dose.
[2016-12-18] MEDS: Heparin 5,000 Unit/mL Inj SUBQ SCH ×3 (00:14→17:49)
[2016-12-18] MEDS: Vancomycin Inj 750 MG in 0.9% Sodium Chloride 250 ML IV SCH ×2 (00:15→11:21)
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
[2016-12-18] MEDS: Polyethylene Glycol (PEG) 17 Gm Powder PO PRN (00:28)
[2016-12-18 04:41] VITALS: BP 120/78; PULSE 57; RESP 20; O2SAT 98
[2016-12-18] MEDS: 0.9% Sodium Chloride 1,000 ML IV SCH ×2 (05:15→20:10)
[2016-12-18] MEDS: Piperacillin-Tazo 3.375 Gm Inj 3.375 GM in Dextrose 5% Minibag Plus 50 ML IV SCH (06:03)
[2016-12-18 06:36] LABS: BASOPHILS % (AUTO) 0.2 % (0-3); EOSINOPHILS % (AUTO) 2.2 % (0-5); MONOCYTES % (AUTO) 9.9 % (4-12); Mean Corpuscular Hemoglobin 29.3 pg (27.0-35.0); Mean Corpuscular Volume 85.3 fL (81-100); NEUTROPHILS % (AUTO) 53.5 % (40-74); Platelet Count 224 bil/L (150-400)
[2016-12-18 07:03] LABS: Magnesium 1.6 mg/dL (1.6-2.6)
[2016-12-18] MEDS ORDERED: Vancomycin Serum Trough XX ONE (07:30)
--- NOTE | 2016-12-18 07:52 | NUR ---
Pain/BGs Pt c/o 10/10 pain that she says is not being relieved by the 10mg Bettina that she is able to receive Q4H. Pt says that 5/10 is a tolerable pain level and this level has not been reached during the shift. The closest I got to reaching her tolerable pain level was a 7/10 and that was with Q4H 10mg Bettina along with ice placed on the incision site. Pt is requesting to be pre-medicated with something stronger than the Bettina prior to any wound dressing changes. Pt's HS BG was 404 and pt was given 4 units of Lispro. Pt takes Metformin at home for BGs and is currently on the low dose algorithm Lispro AC and HS. Pt has requested food that would increase her BGs and was then educated as to why these were not romero choices and then she would ask what foods would be better for her that she could have. Pt might be open to diabetic diet education.
[2016-12-18] MEDS ORDERED: Dextrose 10% 250 ML IV ONE (07:55)
[2016-12-18] MEDS ORDERED: Glucose 40% Oral Gel 15 Gm Tube PO PRN (07:55)
[2016-12-18] MEDS ORDERED: Dextrose 10% 250 ML IV PRN (08:08)
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
[2016-12-18] MEDS: Pantoprazole 20 mg ER24 Tablet PO SCH (08:27)
[2016-12-18] MEDS: Insulin LISPRO 300 Unit/3 mL Inj SUBQ SCH ×4 (08:28→22:54)
[2016-12-18] MEDS ORDERED: Insulin Human REGular 300 Unit/3 mL Inj SUBQ SCH (08:30)
[2016-12-18] MEDS: HYDROmorphone 1 mg/mL Inj IVPUSH PRN (09:18)
--- NOTE | 2016-12-18 10:29 | NUR ---
Pain Management/Dressing change Pt white board denotes pain medication times with boxes. Pt dressing changed with admission discharge rn. Pt resting cooperative with care. Care continues.
--- NOTE | 2016-12-18 11:19 | PCM.PNSURG ---
Subjective Date of Service: Dec 18, 2016 Date of Service: Dec 18, 2016 Visit Information: Reason for Visit Left Hip Abscess, Cellulitis Surgery/Surgery Date Post-Op Day # Date of Admission: Dec 16, 2016 at 21:59 Hospital Day # Subjective: No acute events overnight Blood glucose trend reviewed, has been quite hyperglycemic to 400s and 500s in past 48hrs Patient complains of ongoing pain around L thigh wound No subjective fevers or chills Objective Vital Sign- Last 8 Hours Date Time Temp Pulse Resp B/P Pulse Ox O2 Delivery O2 Flow Rate FiO2 12/18/16 04:41 36.6 57 20 120/78 98 Room Air Intake and Output- Last 8 Hour 12/18/16 Cumulative From/Thru 07:00 12/16/16 15:53 - 12/18/16 06:47 Intake Total 1140 ml 5997 ml Output Total 2810 ml Balance 1140 ml 3187 ml Intake Oral 1140 ml 2980 ml IV Total 3017 ml Output Urine Total 2800 ml Estimated Blood Loss 10 ml # Voids 3 3 # Bowel Movements 0 0 General: Alert, Cooperative, No Acute Distress Neck: Supple Lungs: Normal Air Movement Heart: Exam Unremarkable SURGICAL WOUND : Wound Location/Description Left thigh I&D undressed and nugauze removed. Wound clean based, surrounding erythema and soft tissue edema persists, though improved. Tender to palpation and slightly warm to the touch. No purulence expressed. Result Diagram: 12/18/16 0549 12/18/16 0549 Assessment & Plan Impression 56F IVDU now 2 days s/p I&D left thigh abscess Problems: Plan Patient seen and reviewed with Dr. Goldstein Continue daily wound care with nugauze packing Agree with ongoing broad spectrum antibiosis Please aggressively control BG with goal <180. Consider insulin gtt Will continue to follow I examined and interviewed this pt and agree with the plan above as noted by Dr. Win. Lorin Goldstein MD VTE Prophylaxis: Sub-Q Heparin (Unfractionated) Resuscitation Status: CPR: Attempt Resuscitation Yordan Win MD Dec 18, 2016 11:19 Lorin Goldstein MD Dec 18, 2016 11:22
--- NOTE | 2016-12-18 11:37 | NUR ---
Right hip Pt complaining of pain in right hip. Noticeable red, raised, swollen bump, pain on palp. Crepitus around center of bump. Dr Chandler aware. Care continues.
[2016-12-18 11:46] VITALS: BP 135/67; PULSE 59; RESP 18; O2SAT 97
--- NOTE | 2016-12-18 12:48 | PROG NOTE ---
[address] [address] PROGRESS NOTE PATIENT: LEEANNE LOPES : 1960 MR#: [id number] ADMIT: 12/16/2016 JOB ID: [id number] DATE: 12/18/2016 REASON FOR FOLLOWUP: Bilateral buttock abscesses. INTERVAL HISTORY: Recall this is a woman with history of intramuscular narcotic and other narcotic use who presented with a left hip abscess which has undergone incision and drainage. Today's development is the patient says just in the last couple hours she has noticed the interval development of another lesion on the right side in basically the same position in the hip buttock area. This appears to be a mirror image of the one on the left and is becoming increasingly red and tender. Despite that, the patient has not had any significant fever or chills today. She denies cough, shortness of breath, nausea, vomiting or diarrhea. The patient tells me a curious story that starting at age [age] she has had innumerable skin and soft tissue infections. She says some of her skin and soft tissue abscesses here in adulthood are related to a IM drug injections but some are not. She says that she definitely injected drugs into the left hip area where she has already undergone the I and D, but she did not inject into the right side. PHYSICAL EXAMINATION: Reveals an afebrile woman temp 36.7, pulse 59, respiratory rate 18, blood pressure 135/67. She is saturating well on room air. Examination of the mental status reveals it is clear. Oral cavity negative. Lungs clear. Cardiac tones without new murmur. The abdomen is not examined today. The left buttock lesion was just repacked by Dr. Goldstein a couple hours ago and the patient says this was extremely painful and will not obviously allow me to go ahead and look at the left buttock packed wound. On the right side though, there is about a 10 x 6 cm indurated warm tender process developing in the lateral upper buttock which is almost identical in location to the one on the left that has already undergone I and D. LABORATORY: Labs include white count which has normalized. It is now 8100. Her creatinine is 0.52. Her LFTs are normal. Her albumin is 3. HIV is pending. Staph aureus is growing from the left-sided I and D and I have asked the lab to do susceptibilities to daptomycin as well as ceftaroline. The MRSA screen of the nares is pending still and that was just collected this morning. Blood cultures are negative. ASSESSMENT: It appears this patient is now developing a second process on the right which is starting off the same as the one on the left. While I suspect these are primarily due to IM narcotic injections, I think the patient's history of having such lesions pop up spontaneously for more than 50 years is interesting. Possibilities that could cause this would be an immunoglobulin deficiency or perhaps Job's syndrome. RECOMMENDATIONS: 1. I am going to go ahead and stop the vancomycin and Zosyn combination she is receiving as we now have positive cultures. 2. Instead we are going to go and proceed with daptomycin. I am doing this to try and preserve our very limited IV access in this woman as she has very tenuous peripheral IV. I do not think that continuing to use that IV for frequent irritating doses of antibiotics would be helpful. 3. When the patient is ready to go, will treat her with a single dose of dalbavancin to complete her therapy. 4. Will check quantitative immunoglobulins on this patient which will allow us to look for both Job's syndrome and quantitative immunoglobulin deficiency. Note that we are also checking for HIV of course. 5. Will continue to closely follow this case with you and note that I did discuss this case with Dr. Goldstein and notified her that the patient is in fact developing more lesions.
[2016-12-18] MEDS: DAPTOmycin Inj 500 MG in 0.9% Sodium Chloride 50 ML IV SCH (13:55)
[2016-12-18 15:33] VITALS: BP 143/82; PULSE 68; RESP 18; O2SAT 100
--- NOTE | 2016-12-18 18:45 | NUR ---
Ambulation/pain/I&D/Dressing change Pt ambulated around yanes this shift. Pt states she is going stir crazy wanting to go outside to have a cigarette. Educated pt of risks involved. Pt agreed to walk around unit. Pt states pain is being managed appropriately, times to be administered on white board. Pt NPO after midnight for I&D of right hip tomorrow morning. Notes on white board. Dressing on left hip changed today per wound care notes.
[2016-12-18 19:00] VITALS: BP 131/86; PULSE 81; RESP 18; O2SAT 99
[2016-12-18] MEDS ORDERED: Insulin GLARgine 100 Unit/mL Syringe SUBQ SCH (21:00)
[2016-12-19] VITALS (11 sets, daily range): BP systolic 120–163; BP diastolic 68–93; PULSE 53–109; RESP 13–20; O2SAT 95–100
[2016-12-19] MEDS: 0.9% Sodium Chloride 1,000 ML IV SCH ×3 (01:15→19:22)
[2016-12-19] MEDS: Heparin 5,000 Unit/mL Inj SUBQ SCH ×3 (01:25→17:14)
--- NOTE | 2016-12-19 05:02 | NUR ---
GI/PAIN; npo after midnight. Pain rx effective for pain.
[2016-12-19] MEDS ORDERED: Glucose 40% Oral Gel 15 Gm Tube PO PRN (07:20)
[2016-12-19] MEDS ORDERED: Dextrose 10% 250 ML IV ONE (07:20)
[2016-12-19] MEDS: Pantoprazole 20 mg ER24 Tablet PO SCH (07:30)
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
[2016-12-19] MEDS: Insulin LISPRO 300 Unit/3 mL Inj SUBQ SCH ×5 (08:11→22:00)
[2016-12-19] MEDS ORDERED: MetoCLOpramide 5 mg/mL 2 mL Inj IVPUSH PRN (10:00)
[2016-12-19] MEDS ORDERED: EPHEDrine Sulfate 50 mg/mL Inj IVPUSH PRN (10:00)
[2016-12-19] MEDS ORDERED: Phenylephrine 10,000 mCg/mL Inj IVPUSH PRN (10:00)
[2016-12-19] MEDS ORDERED: Lactated Ringer's 1,000 ML IV SCH (10:00)
[2016-12-19] MEDS ORDERED: Ondansetron 2 mg/mL 2 mL Inj IVPUSH PRN (10:00)
[2016-12-19] MEDS ORDERED: Dexamethasone 4 mg/mL Inj IVPUSH PRN (10:00)
[2016-12-19] MEDS ORDERED: Lactated Ringer's 500 ML IV PRN (10:00)
[2016-12-19] MEDS ORDERED: Labetalol 5 mg/mL 4 mL Inj IV PRN (10:00)
--- NOTE | 2016-12-19 10:02 | NUR ---
TO OR IV saline locked. Consent form has been signed. Report given to ALFONSO Khan. Transferred to the OR via a gurney.
--- NOTE | 2016-12-19 10:04 | PCM.HPANE ---
Patient Data Surgeon Admitting Provider:Sky Olmstead MD Attending Provider:Sky Olmstead MD Primary Care Physician:Sky Fabian DO Other Provider:Kaila Kapadia Anesthesia Reason for Visit Left Hip Abscess, Cellulitis Ht/WT & BMI Height (Feet): 5 Height (Inches): 6.00 Weight (Kilograms): 86.300 Body Mass Index 30.58 Allergies Coded Allergies: codeine (Verified Allergy, Severe, RASH,ITCHING, 08/20/16) nitrofurantoin (Verified Allergy, Severe, HIVERS,SWELLING, 08/20/16) acetaminophen (Verified Adverse Reaction, Severe, LIVER TOXICITY,ITCHING, 08/20/16) metronidazole (Verified Adverse Reaction, Unknown, "affects my nervous system", 12/16/16) Past Anesthesia History Anesthesia History: Denies:: Abnormal Airway, Anesthesia Reactions, Malignant Hyperthermia Diabetes History Hx Diabetes?: Yes (on metformin) Type of Diabetes: Type II Glycemic Control: Oral Medication Current Bedside Blood Glucose: 288 MRSA MRSA: Yes (right hand/wrist, ? hip) Medications Hypertension Medication: No Home Meds Incl Beta Carlito: No Reported Medications Albuterol HFA (Proair HFA)8.5 Gm Hfa.aer.ad2 Puffs INHALATION Q4H PRN For Wheezing #1 INHALER 12/16/16 Metformin 500 Mg [id number] Mg PO BID Ref 0 08/20/16 Albuterol/Ipratropium (Combivent Respimat Inhal [place])120 Spr/4 Gm Inhaler1 Puff IH 6X/DAY PRN For Shortness of Breath #1 INH Ref 0 & PRN 08/20/16 Discontinued Reported Medications Lisinopril 20 Mg [id number] Mg PO DAILY 30 Days Ref 0 08/20/16 Gabapentin 300 Mg [id number] Mg PO TID Ref 0 08/20/16 Cyclobenzaprine 7.5 Mg Tablet7.5 Mg PO TID PRN Spasm Ref 0 08/20/16 Chlorthalidone 25 Mg [id number] Mg PO DAILY #30 TABLET 08/20/16 History History of ENT Problems?: Yes HEENT History: Positive for:: Dysphagia Glaucoma Sinus Problem (allergies ) Denies:: Abnormal Airway Cataracts Denture Type: None Teeth Condition: Broken Teeth Tooth Decay Other HEENT Pertinent History: previous left cornea ulcerations Hx of Heart Problems?: Yes Cardiovascular History: Positive for:: Edema Heart Murmur Hypertension Valvular Heart Disease (NON-RHEUMATIC TR,MILD MR) Denies:: Cardiac Surgery Chest Pain Congestive Heart Failure Irregular Heartbeat Pacemaker Thrombophlebitis Other Cardiac History: "problems with two valves in my heart" Hx of Respiratory Problem?: Yes Respiratory History: Positive for:: Asthma Chest Surgery (for GERD) Dyspnea Denies:: COPD Emphysema Hemoptysis Pneumonia Tuberculosis Use of C-PAP Machine (SNORES) Hx Neurologic Problems?: Yes Neurological History: Positive for:: CVA Dizziness Denies:: Alzheimer's Disease Dementia Headaches Parkinson's Disease Seizures Hx of GI Problems?: Yes Other GI Pertinent History: polyps during colonoscopy Hx of Problems?: Yes Genitourinary History: Positive for:: Kidney Stones (HX OF MULT. STONES) Urinary Tract Infection (PYELONEPHRITIS) Denies:: HX of Hemodialysis HX of Peritoneal Dialysis: No Female Hx: Positive for:: Problems with Breasts? ("something taken out- lump in milk duct" ) Denies:: Currently (HX HYSTERECTOMY) Endometriosis Pelvic Inflammatory Skin History: Positive for:: History Skin Disorders? (HX RT HIP ABCESS REQ. I& D) Denies:: Pressure Ulcers Hx Musculoskeletal Problems?: Yes Musculoskeletal History: Positive for:: Musculoskeletal Trauma (S/P ORIF LT ANKLE W/ REVISION & HARDWARE REMOVAL,CTR) Denies:: Back Injury (C/OF CHRONIC NECK & BACK PAIN) Joint Replacement Hx of Psycho/Social Problems?: Yes Psycho Social History: Positive for:: Anxiety Bipolar Disorder (BIPOLAR I) Suicide Attempt (previously, no current ideations ) Denies:: Hx Depression Hx Surgeries?: Yes (ankle x 20, stomach x 4, necrotizing fascititis, nahed, hyst, carpal tunnel) Hx Any Other Health Problems?: Yes Other History: Positive for:: Hospitalization (NECOTIZING FACIITIS) Denies:: Cancer Endocrine Disease Thyroid Disease History Blood Transfusions: Positive for:: Accept Blood Products? Blood Transfusions Denies:: Blood Transfuse Reaction Hx Diabetes: Yes (on metformin)Bedside Blood Glucose: 288 Hx Alcohol Use: NoHx Substance Use: Yes (heroin- yesterday) Smoking Status: Current Every Day Smoker Have You Smoked inLast 12 mo: YesApprox How Many Cigarettes/day: 10 cigarettes Stop/Bang Treated for Sleep Apnea?: No Do You Have a CPAP Machine?: No S-Snoring: Do You Snore Loudly: No T-Tired: feel tired, fatigued: Yes O-Obsered: Observed not breath: No P-Blood Pressure: treated: Yes B- Body Mass Index > 35 kg/m2: No A- Age over 50: Yes N- Neck Large Circumference: No G- Gender Male: No CADEN Total Score: 2 CADEN Risk Assessment: Low Risk, <3 Yes Risk Assessment Category Category 1A: Patient has history of documented sleep apnea, and HAS NOT received any narcotic, sedative or anesthesia administration during this stay. Category 1B: Patient has history of documented sleep apnea, and HAS received any narcotic , sedative or anesthesia administration during this stay Category 2: Patient has SUSPECTED Obstructive Sleep Apnea, and HAS received any narcotic , sedative or anesthesia administration during this stay. Category 3: Patient has SUSPECTED Obstructive Sleep Apnea and HAS NOT received narcotic, sedative or anesthesia administration during this stay. Category 4: Outpatient in Procedural Areas with known sleep apnea or who screen positive for High Risk via the STOP/BANG questionnaire. Low Risk, <3 Yes Exam Exam Vital Signs Vital Signs Date Time Temp Pulse Resp B/P Pulse Ox O2 Delivery O2 Flow Rate FiO2 12/19/16 08:17 36.6 53 20 163/91 97 Room Air 12/19/16 05:20 36.6 84 16 120/79 98 Room Air General Appearance: Alert, Oriented X3, Cooperative, Mild Distress HEENT/AIRWAY: MP 1 Lungs: Normal Air Movement, Diminished Heart: Exam Unremarkable Meds/Labs/Diagnostics Admission Meds Current Medications Insulin Glargine 10 unit 10 unit HS SUBQ Last administered on 12/18/16 22:55; Start 12/18/16 at 21:00; Stop 12/19/16 at 07:25; Status DC Daptomycin/Sodium Chloride (Cubicin Inj/ Normal Saline) 50 ml @ 100 mls/hr Q24H IV Last administered on 12/18/16 13:55; Start 12/18/16 at 12:00 Insulin Human Lispro (HumaLOG Insulin Inj) [facility] SUBQ Last administered on 08:11; Start 12/19/16 at 08:00 Bedside Blood Glucose: 288 Labs Test 12/16/16 16:20 12/16/16 16:58 12/16/16 18:41 12/17/16 05:43 Hold Purple Top Tube Received (Received) Hold Blue Top Tube Received (Received) Lipase 14U/L (13-60) Hold Marana Top Tube Received (Received) Lactic Acid Level 1.1mmol/L (0.4-2.0) Urine Color Yellow (YELLOW) Urine Appearance Clear (CLEAR,HAZY) Urine pH 6.0 (5.0-8.0) Urine Specific Kelly 1.020 (1.003-1.035) Urine Protein Negativemg/dL (NEG,TRACE) Urine Glucose (UA) 1000mg/dL (NEGATIVE) Urine Ketones Negativemg/dL (NEGATIVE) Urine Occult Blood Negative (NEGATIVE) Urine Nitrite Negative (NEGATIVE) Urine Bilirubin Negative (NEGATIVE) Urine Urobilinogen Normalmg/dL (NORMAL) Urine Leukocyte Esterase Negative (NEGATIVE) Urine RBC 0-2/hpf (0-2) Urine WBC 0-5/hpf (0-5) Urine Epithelial Cells Occasional/hpf (NONE-MOD) Urine Crystals None seen (NONE SEEN) Urine Bacteria None/hpf (NONE-FEW) Urine Hyaline Casts None/lpf (NONE) Urine Granular Casts None seen (NONE SEEN) Urine Waxy Casts None seen (NONE SEEN) Urine Red Blood Cell Casts None seen (NONE SEEN) Urine White Blood Cell Casts None seen (NONE SEEN) Urine Mucus None seen (None Seen) Urine Trichomonas None seen (NONE SEEN) Urine Yeast None (NONE SEEN) Urinalysis Comment None Urine Culture Reflexed Not indicated Hemoglobin A1c 10.4% (4.8-5.6) C-Reactive Protein 4.1mg/dL (0.0-0.5) Test 12/18/16 05:49 12/18/16 08:45 12/19/16 05:35 White Blood Count 8.1th/mm3 (3.8-10.1) Red Blood Count 4.43mil/mm3 (3.90-5.20) Hemoglobin 13.0g/dL (12.0-15.6) Hematocrit 37.8% (35.0-46.0) Mean Corpuscular Volume 85.3fL (81-100) Mean Corpuscular Hemoglobin 29.3pg (27.0-35.0) Mean Corpuscular Hemoglobin Concent 34.4% (32.0-37.0) Red Cell Distribution Width 11.6% (12.3-15.4) Platelet Count 224bil/L (150-400) Neutrophils (%) (Auto) 53.5% (40-74) Lymphocytes (%) (Auto) 33.3% (14-46) Monocytes (%) (Auto) 9.9% (4-12) Eosinophils (%) (Auto) 2.2% (0-5) Basophils (%) (Auto) 0.2% (0-3) Sodium Level 131mEq/L (134-144) Potassium Level 4.6mEq/L (3.5-5.2) Chloride Level 97mEq/L (97-108) Carbon Dioxide Level 21mmol/L (18-29) Blood Urea Nitrogen 9mg/dL (6-24) Creatinine 0.52mg/dL (0.57-1.00) Estimat Glomerular Filtration Rate 174mL/min (>59) Glucose Level 301mg/dL (60-99) Calcium Level 9.5mg/dL (8.5-10.1) Magnesium Level 1.6mg/dL (1.6-2.6) Total Bilirubin 0.4mg/dL (0.0-1.2) Aspartate Amino Transf (AST/SGOT) 13U/L (0-50) Alanine Aminotransferase (ALT/SGPT) 12U/L (0-32) Alkaline Phosphatase 116U/L (25-150) Total Protein 6.7g/dL (6.4-8.4) Albumin 3.0g/dL (3.4-5.0) Vancomycin Level Trough 12.9mcg/mL HIV (1&2) Ag and Ab, 4th Generation Non reactive (Non Reactive) Total Creatine Kinase 28U/L (21-215) Plan Impression Patient chart reviewed, patient interviewed and anesthestic plan with risks, benefits, and alternatives discussed, and informed consent obtained. NPO per Anesth. Guidelines: Yes ASA Physical Status: ASA3 Severe Disease Anesthetic Plan: GA Bene/Risks/Altern/Consents: Yes HP Complete Prior to Induction: Yes Sharad Tidwell MD Dec 19, 2016 10:04
[2016-12-19] MEDS ORDERED: Lactated Ringer's 1,000 ML IV ONE (10:14)
[2016-12-19] MEDS: fentaNYL-PF 50 mCg/mL 2 mL Inj IVPUSH PRN ×3 (11:19→11:44)
--- NOTE | 2016-12-19 11:24 | PCM.ANEP1 ---
Post Anesthesia PACU Phase 1 Assessment Vital Signs Vital Signs Date Time Temp Pulse Resp B/P Pulse Ox O2 Delivery O2 Flow Rate FiO2 12/19/16 11:20 109 13 157/87 100 Simple Mask 10 12/19/16 11:15 56 14 140/68 100 Simple Mask 10 12/19/16 11:10 65 14 146/68 100 Simple Mask 10 12/19/16 11:06 36.2 60 13 160/85 100 Simple Mask 10 12/19/16 08:17 36.6 53 20 163/91 97 Room Air 12/19/16 05:20 36.6 84 16 120/79 98 Room Air Anesthetic Administered: GA Level of Alertness: Awake, talking FRANCO's with Equal Strength: Yes Pain: No Pain Scale Score: 10 Nausea or Vomiting: No CV Function & Hydration Stable: Yes Airway Device: Oxygen Delivery: Room Air Lungs: Normal Air Movement, Diminished PACU Phase 2 Assessment Patient Instructions Provided: N/A Sharad Tidwell MD Dec 19, 2016 11:24
--- NOTE | 2016-12-19 12:20 | NUR ---
POST-OP Patient received from PACU via a gurney. Transferred independently to the gurney. Patient rated her pain as 7/10, which is tolerable for her at this time. Denies nausea. No emesis noted. Denies SOB. Dressing in her L and R hip is CDI. IVF restarted. Oriented to room and call light.
[2016-12-19] MEDS: Polyethylene Glycol (PEG) 17 Gm Powder PO PRN (12:39)
--- NOTE | 2016-12-19 12:46 | OP ---
[address] [address] OPERATIVE REPORT PATIENT: LEEANNE LOPES : 1960 MR#: [id number] ADMIT: 12/16/2016 JOB ID: [id number] DATE OF SURGERY: 12/19/2016 PREOPERATIVE DIAGNOSIS(ES): Right hip abscess. POSTOPERATIVE DIAGNOSIS(ES): Right hip abscess. PROCEDURE PERFORMED: Incision and drainage of deep right hip abscess with cavity 3 cm x 3 cm in size, within the muscle. SURGEON: Lorin Goldstein MD FIELD RESEARCH ASSISTANT: Ivan Win MD FINDINGS: 1. Intramuscular deep hip abscess, with purulent fluid sent for culture. 2. L hip abscess cavity which was incised and drained three days ago was inspected as well, and contained no purulent fluid. Wound base was clean. HISTORY OF PRESENT ILLNESS: This is a 56-year-old woman with a history of injection drug use who presented to the hospital several days ago and underwent left-sided hip abscess incision and drainage by my partner. She also has diabetes and blood sugars were difficult to control. Yesterday she had symptoms consistent with a right-sided hip abscess, and therefore incision and drainage was scheduled. DESCRIPTION OF PROCEDURE: The patient was brought to the operating room and placed in supine position. General anesthesia was induced. A warming blanket was placed. Antibiotics were infused. She was repositioned into left lateral decubitus. The operative field was prepped and draped in sterile fashion. A pause was performed to confirm the correct patient, procedure, site, and side. The area of greatest fluctuance on the right hip was aspirated with a large needle and the fluid was sent for culture. The skin overlying the abscess cavity was incised with cautery. The abscess cavity was found to be approximately 3 cm x 3 cm in size. Due to its depth, the incision overlying it extended approximately 4 cm in length. The purulent fluid was aspirated out. The cavity was gently mechanically debrided to remove all necrotic tissue. There was nearly no necrotic tissue present. Copious irrigation was performed. Hemostasis was obtained with a combination of tamponade and electrocautery. The wound was packed with moist Kerlix. A sterile dressing was placed. The patient was still asleep at the time of this dictation. ESTIMATED BLOOD LOSS: 3 mL. SPECIMENS: Purulent fluid from right hip abscess, sent for culture. COMPLICATIONS: None. MTDD
[2016-12-19] MEDS: DAPTOmycin Inj 500 MG in 0.9% Sodium Chloride 50 ML IV SCH (14:23)
[2016-12-19] MEDS ORDERED: Sodium Biphos-Phos 133 mL Enema RECTAL PRN (15:55)
[2016-12-19] MEDS ORDERED: Ondansetron 2 mg/mL 2 mL Inj ONE (16:33)
[2016-12-19] MEDS ORDERED: Propofol 10,000 mCg/mL 20 mL Inj ONE (16:33)
[2016-12-19] MEDS ORDERED: fentaNYL-PF 50 mCg/mL 2 mL Inj ONE (16:33)
[2016-12-19] MEDS ORDERED: MetoCLOpramide 5 mg/mL 2 mL Inj ONE (16:33)
[2016-12-19] MEDS ORDERED: Magnesium Hydroxide 10 mL Oral Concentration PO PRN (16:45)
[2016-12-19] MEDS ORDERED: Insulin GLARgine 100 Unit/mL Syringe SUBQ SCH (21:00)
[2016-12-20] MEDS: Heparin 5,000 Unit/mL Inj SUBQ SCH ×2 (01:20→09:09)
--- NOTE | 2016-12-20 04:32 | NUR ---
Pain/activity pt has had pain in both hips R>L that she has rated 7-10/10. she has taken 10mg of PO oxycodone every 4 hours for pain control. she says it reduces her pain to a 6/10 which is tolerable to her. she has also gotten up and ambulated in the hallways multiply times because she says that sitting for too long causes her more pain. her dressings are c/d/i. pt is still complaining of constipation. she was given viktor, senna and prune juice at . she has passed flatus this shift but not had a BM. hourly rounding continues.
[2016-12-20 04:59] VITALS: BP 151/89; PULSE 58; RESP 18; O2SAT 99
[2016-12-20] MEDS: 0.9% Sodium Chloride 1,000 ML IV SCH (05:52)
[2016-12-20] MEDS: Polyethylene Glycol (PEG) 17 Gm Powder PO PRN (07:47)
[2016-12-20] MEDS: Pantoprazole 20 mg ER24 Tablet PO SCH (07:47)
[2016-12-20 07:48] VITALS: BP 123/77; PULSE 53; RESP 16; O2SAT 98
[2016-12-20] MEDS: Insulin LISPRO 300 Unit/3 mL Inj SUBQ SCH ×2 (08:00→12:58)
[2016-12-20] MEDS: HYDROmorphone 1 mg/mL Inj IVPUSH PRN (09:39)
[2016-12-20] MEDS ORDERED: Dalbavancin 500 mg Inj IV ONE (10:15)
[2016-12-20] MEDS ORDERED: Dalbavancin Inj 1,500 MG in Dextrose 5% 500 ML IV ONE (10:20)
[2016-12-20] MEDS ORDERED: Oritavancin Diphosphate 1,200 MG in Dextrose 5% 500 ML IV ONE ×2 (10:50→10:55)
--- NOTE | 2016-12-20 11:05 | PROG NOTE ---
[address] [address] PROGRESS NOTE PATIENT: LEEANNE LOPES : 1960 MR#: [id number] ADMIT: 12/16/2016 JOB ID: [id number] DATE: 12/20/2016 REASON FOR FOLLOWUP: Bilateral hip abscesses related to drug injections. INTERVAL HISTORY: The patient reports she is feeling dramatically better today. She has no fevers, no chills, no sweats. No cough or shortness of breath. She reports her wounds are essentially pain free. Recall that she initially underwent a debridement on the left and then subsequently developed another abscess, which was debrided on the right. PHYSICAL EXAMINATION: Reveals a comfortable woman no acute distress. Temp 36.5, pulse 53, respiratory rate 16, blood pressure 123/77, doing well on room air. She is in no acute distress. Oral cavity negative. Mental status is normal. Lungs clear. Abdomen benign. The wounds were just repacked by Wound Care just before I entered the room so I do not remove the dressings, but I spoke at length to Juan Daniel from Wound Care who states that the wounds both look excellent and are not infected appearing at all at this point. LABORATORIES: Include a white count was elevated to 11,000 on the 1st, down 8000 not repeated. Creatinine 0.51. LFTs normal. Albumin 3. Urinalysis without white cells. Quantitative immunoglobulins are pending. HIV is negative. The culture from the wound growing Staph aureus. A MRSA screen is pending, but will likely be positive. IMPRESSION: This is a woman with a history of intramuscular narcotic injections who also has a history of what she reports is recurrent soft tissue infections which predate even her intramuscular narcotic habit. She reports that she is now dramatically better status post incision and drainage of these. At this point, it sounds as if the patient is basically ready for discharge and I have discussed this case in person this morning with Wound Management and General Surgery who agreed. RECOMMENDATIONS: 1. Will discontinue the daptomycin. 2. Will give the patient a single dose of intravenous dalbavancin 1.5 g x1. This will conclude her antibiotic therapy for what is probably a MRSA infection. 3. The patient will be following up with wound management. 4. If her quantitative immunoglobulins are abnormal, I will be contacting her myself to continual workup for immunoglobulin deficiency as a possible cause of these recurrent abscesses, though I think there are other more likely explanations. 5. ID will be signing off.
--- NOTE | 2016-12-20 12:49 | PCM.DIMED ---
Discharge Instructions Date of Service Dec 20, 2016 Dates of Hospitalization Dec 16, 2016 at 21:59 Discharge Diagnosis Discharge Diagnosis MSSA Abscesses Call your provider Call your provider for: Fever or Chills, Other (worsening pain of evidence or new or recurring absecess, high blood sugars) Patient Instructions Follow-up with PCP in: Other (in the next few days regarding your diabetes) Additional Information Follow up at wound care clinic as per wound care nurse and surgery Enid Eduardo MD Dec 20, 2016 12:49
[2016-12-20] MEDS ORDERED: INSU100V7 SUBQ (13:18)
[2016-12-20] MEDS ORDERED: INSU100V28 SUBQ (13:18)
[2016-12-20] MEDS ORDERED: OXYC5TAB72 PO (13:18)
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
--- NOTE | 2016-12-20 15:30 | PCM.PNSURG ---
Subjective Date of Service: Dec 20, 2016 Visit Information: Reason for Visit Left Hip Abscess, Cellulitis Surgery/Surgery Date I&D L HIP ABSCESS 12/19/16 Post-Op Day # Date of Admission: Dec 16, 2016 at 21:59 Hospital Day # Subjective: No acute overnight events Pain in left hip is slowly improving Right hip feels much better after I&D No fevers or chills Denies any other complaints Objective Vital Sign- Last 8 Hours Date Time Temp Pulse Resp B/P Pulse Ox O2 Delivery O2 Flow Rate FiO2 12/20/16 07:48 36.5 53 16 123/77 98 Room Air Intake and Output- Last 8 Hour 12/20/16 Cumulative From/Thru 07:00 12/16/16 15:53 - 12/20/16 05:20 Intake Total 936 ml 81493 ml Output Total 3560 ml Balance 936 ml 9562 ml Intake Oral 936 ml 6732 ml IV Total 6390 ml Output Urine Total 3550 ml Estimated Blood Loss 10 ml # Voids 6 22 # Bowel Movements 0 General: Alert, Cooperative, No Acute Distress Neck: Supple, Full Range of Motion Lungs: Normal Air Movement Heart: Exam Unremarkable Abdomen: Benign SURGICAL WOUND : Wound Location/Description Left thigh I&D with improving erythema and induration. Wound clean based. No purulence. Right thigh I&D also with improving erythema and induration, wound clean based and without purulence. Left thigh still quite tender to palpation, worse than right. Result Diagram: 12/18/16 0549 12/20/16 0633 Assessment & Plan Impression 56 year old female who is an IVDU and developed bilateral thigh abscesses s/p left thigh I&D on 12/17 and right thigh I&D on 12/19. Convalescing appropriately at this time without leukocytosis, fevers, and with improved appearance of wound and surrounding cellulitis. Problems: Plan Ok to discharge today from surgical standpoin. Plan for immediate follow up in wound clinic on December 22. Please continue outpatient abx per ID recs Needs excellent glycemic control and diabetes follow up Continue BID wet to dry dressings Please do not hesitate to call with questions or concerns. VTE Prophylaxis: Sub-Q Heparin (Unfractionated) Resuscitation Status: CPR: Attempt Resuscitation Yordan Win MD Dec 20, 2016 15:29
--- NOTE | 2016-12-20 16:51 | NUR ---
Wound Note Patient seen at bedside for wound care and dressing change, apparently patient developed another abscess at her right hip requiring surgical I&D by Dr Goldstein over the weekend. Dressings were taken down from both hips today after iv Dilaudid bolus by nursing and packing removed for visual inspection of these wounds. Left hip- erythema resolved, wound bed is granular, no purulence and induration is almost completely resolved, measures 3 cm L x 1.5 cm W x 2.5 cm D, cleaned with saline and gauze then repacked with 1" packing strip and covered with absorbent dressing taped in place. Right hip- measures 6 cm L x 2 cm W x 2.5 cm D, wound bed is clean, some dark areas where tissue was likely cauterized, induration extends anteriorly from the wound edge but erythema is minimal. Cleaned with saline and gauze then repacked with 1" packing strip and covered with absorbent dressing taped in place. Patient tolerated treatment well, has appointment for wound follow up at the wound center on Friday 12/22.
--- NOTE | 2016-12-20 16:58 | NUR ---
DISCHARGE Oxicodone 10 mg PO has been effective for pain control. Patient rated her pain as 7/10 or via FELDT scale 0-2/10 after her pain medication. Tolerating liquids PO and her diet well. Denies nausea. No emesis noted. Denies SOB. Patient has been ambulating independently in the hallway. Gait is steady. Tolerating activity well. Dressing is CDI. Changed by Juan Daniel from [facility] this morning. Stool softeners was given to the patient and she has been passing out gas and had a BM today. IV ABT administered prior to D/C. IV saline lock d/cd. Discharge instructions, care notes and prescription was given to the patient and she verbalized understanding. Discharge home with her son and all her personal belongings. D/C TEACHING: PATIENT STATED THAT SHE KNOWS HOW TO CHECK HER BS AND ADMINISTER INSULIN SINCE SHE HAS BEEN DOING THIS BEFORE. PER PATIENT SHE ALSO KNOWS HOW TO DO HER DRESSING CHANGES SINCE SHE HAS BEEN A WOUND CARE PATIENT BEFORE. INSTRUCTED TO MAKE SURE TO KEEP HER FOLLOW-UP APPOINTMENT WITH THE [facility].
== END 2016-12-20 16:23 | disposition home or self-care (01) | DRG 580 ==
LOC: SED 15:46 → ORA 21:36 → OSC 21:59
PROVIDERS: ADMIT Internal Medicine Infectious Disease; ATTEND Internal Medicine Infectious Disease
PROC: 0J9M0ZX Drainage of Left Upper Leg Subcutaneous Tissue and Fascia, Open Approach, Diagnostic (ICD-10-PCS; principal; 2016-12-16 22:00)
PROC: 0K9 Muscles, Drainage (ICD-10-PCS; 2016-12-19)
DX: L03.116 Cellulitis of left lower limb (principal); E87.1 Hypo-osmolality and hyponatremia; E11.65 Type 2 diabetes mellitus with hyperglycemia; L03.115 Cellulitis of right lower limb; B95.61 Methicillin susceptible Staphylococcus aureus infection as the cause of diseases classified elsewhere; F11.10 Opioid abuse, uncomplicated; Z79.84 Long term (current) use of oral hypoglycemic drugs; F17.210 Nicotine dependence, cigarettes, uncomplicated; B19.20 Unspecified viral hepatitis C without hepatic coma; I10 Essential (primary) hypertension

== ENCOUNTER 2016-12-27 13:01 | Emergency (ER) | payer MEDICARE, MEDICAID ==
[~2016-12-27] VITALS: Ht 167.6 cm; Wt 86.4 kg
[~2016-12-27 13:01] MED LIST changes: +ALBU8.5H2 INHALATION; -CYCL7.5T27 PO; -GABA-502 PO; -HYG25 PO; +INSU100V28 SUBQ; +INSU100V7 SUBQ; -LISI-567 PO; +OXYC5TAB72 PO
[2016-12-27 13:07] VITALS: BP 177/103; PULSE 74; RESP 15; O2SAT 98
--- NOTE | 2016-12-27 13:50 | ED.REPORT ---
HPI-General Illness Date of Service Dec 27, 2016 ED Provider: Dr. Wilkinson Pt is a 56 year old female with a hx of DM, HTN, and hyperlipidemia presenting to the ED complaining of pain and swelling at the I&D sites of 2 drained abscesses. She also complains of chills. Denies fever or any other symptoms at this time. She was discharged from the hospital on December 21, but states that the abscess I&D sites are not healing well. She states that she has been getting abscesses since she was a child. Nursing Notes Stated Complaint: INFECTION ON LEGS Chief Complaint: General Complaint Nursing Notes Reviewed: Yes Allergies: Coded Allergies: codeine (Verified Allergy, Severe, RASH,ITCHING, 08/20/16) nitrofurantoin (Verified Allergy, Severe, HIVERS,SWELLING, 08/20/16) acetaminophen (Verified Adverse Reaction, Severe, LIVER TOXICITY,ITCHING, 08/20/16) metronidazole (Verified Adverse Reaction, Unknown, "affects my nervous system", 12/16/16) Scheduled Insulin Glargine (Lantus U100 Insulin Vial) 100 Unit/Ml Vial 20 UNIT SUBQ HS Insulin Regular, Human (HUMulin-R U100 Insulin Vial) 100 Unit/1 Ml Vial 1 UNIT SUBQ ACHS if glu 100-150 2 units, 151-200 4 units, 201-260 6 units, 261-320 8 units, > 320 10 units Metformin (Metformin) 500 Mg Tablet 500 MG PO BID Scheduled PRN Albuterol HFA (Proair HFA) 8.5 Gm Hfa.aer.ad 2 PUFFS INHALATION Q4H PRN PRN For Wheezing Albuterol/Ipratropium (Combivent Respimat Inhal [place]) 120 Spr/4 Gm Inhaler 1 PUFF IH 6X/DAY PRN PRN For Shortness of Breath & PRN oxyCODONE (oxyCODONE) 5 Mg Tablet 5-10 MG PO Q4H PRN PRN For Moderate Pain General Time Seen by MD: 13:49 Chief Complaint Other (Redness/swelling) Hx Obtained From: Patient Arrived By: Walk-in Sudden in Onset?: No Onset Occurred: Onset unknown Symptom Duration: Since onset Severity: Current: Mild Severity: Maximum: Mild Recent Healthcare: Recent doctor visit, Recent hospitalization, Previous surgery Similar Sx Previous: Yes Past Medical History Past Medical History Multiple episodes of kidney stones and urine tract infections. Chronic neck pain, back pain. Bipolar- takes meds as Rx EtOH abuse Reports: Asthma, Diabetes mellitus, Hyperlipidemia, Hypertension Past Surgical History Skin graft for necrotizing fasciitis on right wrist. Avasular necrosis Carpal tunnel Surgery for SBO Hernia repair Plate placement in left ankle Reports: Hysterectomy Reports: Carpal tunnel Family History Pancreatitis - reported by patient Smoking History Current Every Day Smoker Social History Lives in a [facility] Alcohol Use: >5 per day Drug Use: IV drugs, Meth Occupation living with son and daughter, no work or school Ambulatory Status Independent Review of Systems Full Review of Systems Constitutional: Reports: Chills, Denies: Fever, Weakness - generalized Respiratory: Denies: Shortness of breath Cardiovascular: Denies: Chest pain GI: Denies: Abdominal pain Skin: Reports Rash Complete sys rev & neg: except as marked. Physical Exam Vital Signs Vital Signs Date Time Temp Pulse Resp B/P Pulse Ox O2 Delivery O2 Flow Rate FiO2 12/27/16 17:56 36.8 71 20 155/84 99 Room Air 12/27/16 16:00 37.2 72 18 150/92 98 Room Air 12/27/16 13:07 36.6 74 15 177/103 98 Initial VS: Reviewed General/Constitutional: Well-developed, Well-nourished Head / Eyes: Atraumatic, Normocephalic, PERRL ENT: Mucous membranes moist, Conjunctiva normal, No scleral icterus Neck: Supple, Non-tender, Full range of motion Respiratory: Breath sounds normal, Clear to auscultation, No respiratory distress Cardiovascular: Regular rate & rhythm, Heart sounds normal, Intact distal pulses Abdomen / GI: Soft, Non-tender, No guarding, No rebound, No distention Extremities: Vascular intact, Neuro intact, No swelling, No tenderness Neurologic: Alert, Oriented, Nonfocal Psychiatric: Mood/affect normal, Behavior normal, Normal thought content Skin: Warm, Dry Bilateral gluteal abscesses, the one on the right is packed and appears to be well healing Interpretation & Diagnostics Lab Results Interpretation Result Diagram: 12/27/16 1436 12/27/16 1436 Test 12/27/16 14:36 White Blood Count 6.4th/mm3 (3.8-10.1) Red Blood Count 4.14mil/mm3 (3.90-5.20) Hemoglobin 12.0g/dL (12.0-15.6) Hematocrit 36.2% (35.0-46.0) Mean Corpuscular Volume 87.4fL (81-100) Mean Corpuscular Hemoglobin 29.0pg (27.0-35.0) Mean Corpuscular Hemoglobin Concent 33.1% (32.0-37.0) Red Cell Distribution Width 12.4% (12.3-15.4) Platelet Count 259bil/L (150-400) Neutrophils (%) (Auto) 46.0% (40-74) Lymphocytes (%) (Auto) 44.5% (14-46) Monocytes (%) (Auto) 7.6% (4-12) Eosinophils (%) (Auto) 1.4% (0-5) Basophils (%) (Auto) 0.3% (0-3) Erythrocyte Sedimentation Rate 24mm/hr (0-40) Sodium Level 139mEq/L (134-144) Potassium Level 3.5mEq/L (3.5-5.2) Chloride Level 104mEq/L (97-108) Carbon Dioxide Level 20mmol/L (18-29) Blood Urea Nitrogen 23mg/dL (6-24) Creatinine 0.65mg/dL (0.57-1.00) Estimat Glomerular Filtration Rate 135mL/min (>59) Glucose Level 132mg/dL (60-99) Lactic Acid Level 0.7mmol/L (0.4-2.0) Calcium Level 9.6mg/dL (8.5-10.1) Magnesium Level 1.7mg/dL (1.6-2.6) Total Bilirubin 0.2mg/dL (0.0-1.2) Aspartate Amino Transf (AST/SGOT) 21U/L (0-50) Alanine Aminotransferase (ALT/SGPT) 20U/L (0-32) Alkaline Phosphatase 107U/L (25-150) Total Protein 7.1g/dL (6.4-8.4) Albumin 3.6g/dL (3.4-5.0) Procalcitonin 0.08ng/mL (0.00-0.08) CT Abd / Pelvis Interpretation IMPRESSION: 1. Edema and possible infection in the subcutaneous tissues of both flanks including at the site of a phlegmon seen on the previous left head CT. Today there are no drainable fluid collections. 2. Stable area of low density in the left psoas musculature likely represents intramuscular extension of the left hip joint. A stable focus of inflammation/infection is possible. 3. Anterior abdominal wall hernia repair with tiny fat-containing hernia at its inferior left aspect. 4. Nodular confirmation of the liver may represent very early cirrhosis. This can be confirmed with liver biopsy as needed. Dictated by: Celso Trevino M.D. on 12/27/2016 at 17:05 Study type: Abdominal CT IV contrast Interpretation / Wet Read by: Interpret - Radiologist Re-Eval/Medical Decision Med Decision/Clinical Course No evidence of recurrent abscess. Also no evidence of progression of the area that may have been a psoas abscess, this seems to be extension of the hip joint and is unchanged from prior imaging. Patient discharged after wound repacking. Time of Eval: 17:20 Patient Status: Condition improved Re-Evaluation/Progress Note: Discussed CT results and re-packed the drainage site. Discussed plan for discharge. Pt understands and agrees. Counseled Regarding: Diagnosis, Lab results, Need for follow-up, When/why to return to ED Discharge & Departure Primary Impression: Wound check, abscess Disposition: Home Discharge Condition All VS Reviewed: Yes Condition: Improved Additional Instructions: Your drainage site does not show any signs of infection. Your CT scan looked good and did not show any abscess. Continue to take your antibiotics as prescribed and change the packing daily. Return to the ER if you develop any new or worsening symptoms such as fever, vomiting, redness or swelling. Referrals: Sky Fabian DO (PCP) Kymberly Attestation Portions of this note were transcribed by Yulissa Ortiz. I, Dr. Wilkinson personally performed the history, physical exam and medical decision-making; I reviewed and confirmed the accuracy of the information in the transcribed note. Signed by: Kymberly Drake, 12/27/16 at 1803. copies to: Sky Fabian Timothy S DO Dec 27, 2016 13:50 YULISSA ORTIZ Dec 27, 2016 14:03
[2016-12-27] MEDS ORDERED: 0.9% Sodium Chloride 1,000 ML IV ONE (14:01)
[2016-12-27 14:46] LABS: BASOPHILS % (AUTO) 0.3 % (0-3); EOSINOPHILS % (AUTO) 1.4 % (0-5); MONOCYTES % (AUTO) 7.6 % (4-12); Mean Corpuscular Volume 87.4 fL (81-100); Platelet Count 259 bil/L (150-400)
[2016-12-27 15:02] LABS: ERYTHROCYTE SEDIMENTATION RATE 24 mm/hr (0-40)
[2016-12-27 15:16] LABS: Magnesium 1.7 mg/dL (1.6-2.6)
[2016-12-27 16:00] VITALS: BP 150/92; PULSE 72; RESP 18; O2SAT 98
--- NOTE | 2016-12-27 17:17 | DRSVH ---
PROCEDURE: CT ABDOMEN AND PELVIS WITH CONTRAST ([id number]) INDICATIONS: h/o gluteal abscesses, worsening on right TECHNIQUE: After the administration of intravenous contrast, 5 mm thick sections acquired from the diaphragm to the symphysis. 5 mm coronal and sagittal reformats were acquired. For radiation dose reduction, the following was used: automated exposure control, adjustment of mA and/or kV according to patient isidro ponce. COMPARISON: [facility], CT, CT HIP LT W CON, 12/16/2016, 19:50. Abdomen pelvis CT from . FINDINGS: Image quality: Excellent. ABDOMEN: Lung bases: Lung bases are clear. Heart size is normal. Small esophageal hiatal hernia. Solid organs: Mildly nodular confirmation of the liver may represent early cirrhosis. No hepatic mass es. Cholecystectomy. The pancreas, spleen, adrenal glands and right kidney are normal. Large exophyti c left renal cyst otherwise the left kidney is normal. Peritoneum and bowel: Bowel loops demonstrate normal wall thickness and caliber. No free fluid or a ir. Nodes and vessels: No retroperitoneal or mesenteric adenopathy by size criteria. Aorta and inferior vena cava are normal in size. Miscellaneous: Anterior abdominal wall hernia repair. Small fat containing hernia at its inferior l eft paracentral aspect (se 2 im 42). PELVIS: Genitourinary: Bladder wall thickness is normal. Miscellaneous: No inguinal hernias or adenopathy. There is induration, skin thickening and subcutan eous gas in the right flank measuring 2.5 x 2.6 CM and left flank measuring 2.0 x 3.0 CM (se 2 im 49 and 52). The left-sided findings at the site of a previously noted phlegmon. No drainable fluid colle ctions. Stable area of low density in the left psoas musculature at the superior aspect of the left h ip joint measures 2.1 x 2.2 CM (se 2 im 68). Bones: No suspicious bony lesions. No vertebral body compression fractures. IMPRESSION: 1. Edema and possible infection in the subcutaneous tissues of both flanks including at the site of a phlegmon seen on the previous left head CT. Today there are no drainable fluid collections. 2. Stable area of low density in the left psoas musculature likely represents intramuscular extension of the left hip joint. A stable focus of inflammation/infection is possible. 3. Anterior abdominal wall hernia repair with tiny fat-containing hernia at its inferior left aspect. 4. Nodular confirmation of the liver may represent very early cirrhosis. This can be confirmed with l iver biopsy as needed. Dictated by: Celso Trevino M.D. on 12/27/2016 at 17:05 Approved by: Celso Trevino M.D. on 12/27/2016 at 17:14
[2016-12-27 17:56] VITALS: BP 155/84; PULSE 71; RESP 20; O2SAT 99
== END 2016-12-27 18:10 | disposition home or self-care (01) ==
LOC: SED 13:01
DX: Z48.01 Encounter for change or removal of surgical wound dressing (principal); I10 Essential (primary) hypertension; E11.9 Type 2 diabetes mellitus without complications; J45.909 Unspecified asthma, uncomplicated; E78.5 Hyperlipidemia, unspecified; F31.9 Bipolar disorder, unspecified; F10.10 Alcohol abuse, uncomplicated; F15.10 Other stimulant abuse, uncomplicated; F17.200 Nicotine dependence, unspecified, uncomplicated; Z87.442 Personal history of urinary calculi; Z87.440 Personal history of urinary (tract) infections; Z79.84 Long term (current) use of oral hypoglycemic drugs; Z79.4 Long term (current) use of insulin; Z88.6 Allergy status to analgesic agent; Z88.1 Allergy status to other antibiotic agents; Z88.5 Allergy status to narcotic agent
CPT/HCPCS: 36415; 74177; 80053; 83605; 83735; 84145; 85025; 85651; 87040; 96360; 99285; J7030; Q9967